=== PATIENT | female | born 1965 | race Caucasian/White ===

== ENCOUNTER → 2016-11-16 | Outpatient (CLI) | payer BC ==
[~2016-11-16] MED LIST: ALBU0.08 INH; ALBUAER2 INH; ATOR10TA88 PO; BUDE0.5S NEB; CETI10TA84 PO; ESCI1TAB10 PO; FERR325T51 PO; FEXO5TAB2 PO; LOSA100T26 PO; METO25TA3 PO; MTR600X PO; MULT-506 PO; OMEG10007 PO; OMEP40CA PO; PLMIN90 INH; SNG10 PO
--- NOTE | 2016-11-16 15:21 | DIAGNOSTIC IMAGING REPORT ---
FUSION CT SINUSES W/O CLINICAL HISTORY: Acute sinusitis, allergic rhinitis. COMPARISON STUDY: No previous studies for comparison. FINDINGS: The mastoid air cells appear symmetrically aerated. The middle ear cavities appear symmetrically aerated. There is fluid within the sphenoid sinus and right maxillary sinus. The ethmoid air cells are clear. There is minor right maxillary sinus mucosal thickening. No orbital masses are visualized. There is no hydrocephalus. There is pneumatization of both middle turbinates. There is minor ostial narrowing of the right ostiomeatal unit. The frontoethmoidal recesses appear patent IMPRESSION: 1. Minor narrowing of the ostial portion of the right ostiomeatal unit 2. Partial pneumatization of both middle turbinates 3. Right maxillary sinus and sphenoid sinus air-fluid levels. Electronically signed by: Vadim Lutz M.D. 11/16/2016 3:19 PM Dictated Date/Time: 11/16/2016 3:16 PM
== END | disposition home or self-care (01) ==
LOC: C.CTS 14:53
PROVIDERS: ATTEND Internal Medicine Geriatric Medicine
DX: J01.90 Acute sinusitis, unspecified (principal); J30.9 Allergic rhinitis, unspecified

== ENCOUNTER → 2016-12-22 | Outpatient (CLI) | payer BC ==
[~2016-12-22] MED LIST changes: +ATOR10TA82 PO; -ATOR10TA88 PO; -LOSA100T26 PO; +LOSA100T33 PO
== END | disposition home or self-care (01) ==
LOC: C.CPL 16:20
DX: Z01.818 Encounter for other preprocedural examination (principal)

== ENCOUNTER → 2017-01-08 | Day surgery (SDC) | payer BC ==
[2016-12-25 08:43] VITALS: Ht 165.1 cm; Wt 77.3 kg
[~2017-01-08] VITALS: Ht 165.1 cm; Wt 77.3 kg
[~2017-01-08] MED LIST changes: -ATOR10TA82 PO; +ATROPINE SULFATE 0.1 MG/ML 5ML SYR IV PRN; -BUDE0.5S NEB; +CLINDAMYCIN PHOS 150 MG/ML 2 ML VIAL IV SCH; +DEXAMETHASONE SOD INJ 4 MG/ML VIAL ONE; +EpHEDrine SULFATE 50MG/5ML SYR ONE; +EpHEDrine SULFATE INJ 50 MG/ML AMP IV PRN; +EpINEphrine INJ 1MG/ML AMP 1 MG/ML AMP ONE; +FENTANYL CITRATE INJ 50 MCG/1 ML 2 ML VIAL IV PRN; +FENTANYL CITRATE INJ 50 MCG/1 ML 2 ML VIAL ONE; -FERR325T51 PO; -FEXO5TAB2 PO; +GLYCOPYRROLATE INJ 0.2 MG/ML VIAL ONE; +HYDROCODONE/ACETAMOPHEN 5/325MG TAB ONE; +HYDROCODONE/ACETAMOPHEN 5/325MG TAB PO PRN; +LACTATED RINGER'S 1000ML 1,000 ML IV SCH; +LIDOCAINE 4% MPF SOAK 5 ML = 1 DOSE TOP ONE; +LIDOCAINE HCL 2% 2 ML VIAL (20MG/ML) ONE; +LIDOCAINE/EPINEPHRINE 1% INJ 50 ML VIAL ONE; +MIDAZOLAM HCL 1 MG/ML 2ML VIAL ONE; -MTR600X PO; +NEOSTIGMINE METHYLSULFATE 5 MG/5 ML SYR ONE; +ONDANSETRON INJ 2 MG/ML 2 ML VIAL IV PRN; +ONDANSETRON INJ 2 MG/ML 2 ML VIAL ONE; +OXYMETAZOLINE HCL 0.05% NA SPR 15 ML BTL PRN; +OXYMETAZOLINE HCL 0.05% NA SPR 15 ML BTL SCH; +PROPOFOL IV EMULSION 10 MG/ML 20 ML VIAL IV ONE; +SCOPOLAMINE 1.5 MG TDSY TD ONE
--- NOTE | 2017-01-08 08:50 | History & Physical Bridge - [place] ---
H&P Re-Evaluation Bridge Note: I have examined the patient, reviewed the History & Physical and in the interval since the performance of the History & Physical I have noted the following changes of clinical significance: No changes noted
--- NOTE | 2017-01-08 10:14 | [facility] Operative Report ---
Operative Report Operative Date Jan 08, 2017. Pre-Operative Diagnosis Chronic Sinusitis, Nasal Septal Deviation, Hypertrophy of Both Inferior Nasal Turbinates Post-Operative Diagnosis Same Procedure(s) Performed Image Guided Right Maxillary Antrostomy, Right Anterior Ethmoidectomy, Right Sphenoidectomy, Bilateral Candi Bullosa Resection, Bilateral Inferior Turbinate Reduction Surgeon Dr. López Clinical Instructor Surgeon(s) None Estimated Blood Loss 10 ml Findings 1. BILATERAL CANDI BULLOSA 2. SEVERE BILATERAL INFERIOR TURBINATE HYPERTROPHY 3. THICK MUCUS IN RIGHT MAXILLARY AND SPHENOID SINUSES Specimens None I attest to the content of the Intraoperative Record and any orders documented therein. Any exceptions are noted below.
--- NOTE | 2017-01-08 10:16 | Discharge Instructions ---
Discharge Instructions Date of Service Jan 08, 2017. Admission Reason for Admission: Chronic Sinusitis, Nasal Septal Deviation, Hypertr Discharge Discharge Diagnosis / Problem: SAME Discharge Goals Goal(s): Therapeutic intervention Activity Recommendations Activity Limitations: as noted below 1. NO DRIVING WHILE ON [place] 2. NO NOSE BLOWING FOR 2WEEKS 3. LIGHT ACTIVITY FOR 2 WEEKS . Current Hospital Diet Patient's current hospital diet: Discharge Diet Recommended Diet: Regular Diet Procedures Procedures Performed: Image Guided Right Maxillary Antrostomy, Right Anterior Ethmoidectomy, Right Sphenoidectomy, Bilateral Adriana Bullosa Resection, Bilateral Inferior Turbinate Reduction Pending Studies Studies pending at discharge: no Medical Emergencies . Who to Call and When: Medical Emergencies: If at any time you feel your situation is an emergency, please call 911 immediately. . Non-Emergent Contact Non-Emergency issues call your: Surgeon . . "Provider Documentation" section prepared by Alonso López. . VTE Core Measure Inpt VTE Proph given/why not?: SCD's
--- NOTE | 2017-01-08 11:05 | OPERATIVE REPORT ---
DATE OF OPERATION: 01/08/2017 PREOPERATIVE DIAGNOSES: 1. Chronic sinusitis. 2. Bilateral inferior turbinate hypertrophy. POSTOPERATIVE DIAGNOSES: 1. Chronic sinusitis. 2. Bilateral inferior turbinate hypertrophy. PROCEDURES: Facebook fusion image-guided bilateral endoscopic sinus surgery consisting of: 1. Bilateral endoscopic babar bullosa resection. 2. Right maxillary antrostomy. 3. Right anterior ethmoidectomy. 4. Right sphenoidotomy. 5. Bilateral inferior turbinate outfracture and turbinoplasty. SURGEON: Dr. López. ANESTHESIA: General endotracheal. ESTIMATED BLOOD LOSS: 10 mL FINDINGS: 1. Bilateral babar bullosa. 2. Thick mucus within the right maxillary and right sphenoid sinuses. 3. Severe bilateral inferior turbinate hypertrophy. SPECIMENS: None. COMPLICATIONS: None. INDICATIONS FOR THE PROCEDURE: The patient is a 51-year-old female with the above-mentioned history which has been unresponsive to maximum medical therapy. She presents for the above-mentioned procedure on an outpatient elective basis. DETAILS OF PROCEDURE: After informed consent had been obtained from the patient, the patient was wheeled to the operating room and placed on the operating table in the supine position. Monitors were placed. After induction of general endotracheal anesthesia, the patient was prepped in the usual fashion for image-guided bilateral endoscopic sinus surgery. The [employer] navigation headset was placed over the forehead and was verified, calibrated, and used for the sphenoid sinus portion of the procedure. Lidocaine and epinephrine pledgets were placed in bilateral nasal cavities and pressure applied. Left-sided pledgets were removed and the left middle turbinate was injected with 1% lidocaine with 1:100,000 epinephrine. Lidocaine and epinephrine pledget was then placed in the left middle meatus. The right side was then addressed in a similar fashion; however, on this side, the lateral nasal wall and uncinate process were also injected. The left-sided pledget was removed. A sickle knife was used to incise the middle turbinate longitudinally and the lateral half of the middle turbinate was removed using straight Marquez-Cut forceps and powered instrumentation to perform an endoscopic babar bullosa resection. A lidocaine-epinephrine pledget was then placed into the left middle meatus. The right side was then addressed in a similar fashion. After the babar bullosa resection, the uncinate process was removed using a freer elevator, straight Marquez-Cut forceps, and powered instrumentation. The natural ostia of the right maxillary sinus was enlarged anteriorly, inferiorly, and posteriorly using backbiting forceps, straight Marquez-Cut forceps, and powered instrumentation. There was thick mucus within the posterior aspect of the right maxillary sinus, which was suctioned. An anterior ethmoidectomy was then performed using powered instrumentation. A transnasal approach to the sphenoid sinus was undertaken and the sphenoid sinus was entered through the natural ostia and this was enlarged medially and inferiorly using powered instrumentation. There was thick mucus within the posterior aspect of the right sphenoid sinus as well. Recinos elevator was then used to infracture and subsequently outfracture the inferior turbinates bilaterally. The inferior turbinates were injected with 1% lidocaine with 1:100,000 epinephrine. A 2.0 mm turbinate blade using powered instrumentation was then used to perform bilateral inferior turbinoplasties in a submucosal fashion. The sinonasal cavities were then suctioned. MeroGel nasal dressing was then placed in bilateral middle meatus as well as the right ethmoid cavity. The nasal cavity, nasopharynx, oral cavity and oropharynx were then suctioned. An orogastric tube was placed and stomach was suctioned free of air and stomach contents. This marked the end of the case. The patient tolerated the procedure well. There were no apparent complications. The patient was extubated and transferred to recovery room in stable condition. I attest to the content of the Intraoperative Record and any orders documented therein. Any exceptio ns are noted below.
[2017-01-08 11:46] VITALS: BP 132/77; PULSE 71; O2SAT 99
--- NOTE | 2017-01-08 12:16 | Anesthesia Progress Nt - [facility] ---
Anesthesia Post Op Note Date & Time Jan 08, 2017 at 12:16 Vital Signs Pain Intensity: 4 Vital Signs Past 12 Hours Date Time Temp Pulse Resp B/P Pulse Ox O2 Delivery O2 Flow Rate FiO2 01/08/17 11:46 71 16 132/77 99 Room Air 01/08/17 11:02 36.5 74 16 130/79 99 Room Air 01/08/17 10:54 142/80 01/08/17 10:54 36.7 99 Room Air 01/08/17 10:53 74 13 01/08/17 10:53 75 13 100 01/08/17 10:50 142/80 01/08/17 10:48 76 12 100 01/08/17 10:48 75 12 01/08/17 10:44 146/84 01/08/17 10:43 78 10 01/08/17 10:43 78 10 100 01/08/17 10:39 149/76 01/08/17 10:38 72 13 01/08/17 10:38 72 13 100 01/08/17 10:37 82 16 01/08/17 10:37 81 16 100 01/08/17 10:34 147/71 01/08/17 10:32 73 7 100 01/08/17 10:32 75 7 01/08/17 10:29 147/79 01/08/17 10:27 87 13 100 01/08/17 10:27 87 13 01/08/17 10:24 149/77 01/08/17 10:22 96 01/08/17 10:22 36.6 91 16 167/80 100 Humidified Oxygen 6 Mask 01/08/17 10:22 96 167/80 100 01/08/17 07:54 36.7 67 16 128/67 98 Room Air Notes Mental Status: alert / awake / arousable, participated in evaluation Pt Amnestic to Procedure: Yes Nausea / Vomiting: adequately controlled Pain: adequately controlled Airway Patency, RR, SpO2: stable & adequate BP & HR: stable & adequate Hydration State: stable & adequate Anesthetic Complications: no major complications apparent
== END | disposition home or self-care (01) ==
LOC: X.SURG 07:28
DX: J32.9 Chronic sinusitis, unspecified (principal); J34.3 Hypertrophy of nasal turbinates; J34.2 Deviated nasal septum; J45.909 Unspecified asthma, uncomplicated; Z98.890 Other specified postprocedural states; Z88.5 Allergy status to narcotic agent; Z91.040 Latex allergy status; Z68.28 Body mass index [BMI] 28.0-28.9, adult; Z88.1 Allergy status to other antibiotic agents; Z88.0 Allergy status to penicillin; Z80.3 Family history of malignant neoplasm of breast; Z82.49 Family history of ischemic heart disease and other diseases of the circulatory system

== ENCOUNTER → 2017-04-28 | Outpatient (CLI) | payer BC ==
[~2017-04-28] MED LIST changes: -ATROPINE SULFATE 0.1 MG/ML 5ML SYR IV PRN; -CLINDAMYCIN PHOS 150 MG/ML 2 ML VIAL IV SCH; -DEXAMETHASONE SOD INJ 4 MG/ML VIAL ONE; -EpHEDrine SULFATE 50MG/5ML SYR ONE; -EpHEDrine SULFATE INJ 50 MG/ML AMP IV PRN; -EpINEphrine INJ 1MG/ML AMP 1 MG/ML AMP ONE; -FENTANYL CITRATE INJ 50 MCG/1 ML 2 ML VIAL IV PRN; -FENTANYL CITRATE INJ 50 MCG/1 ML 2 ML VIAL ONE; -GLYCOPYRROLATE INJ 0.2 MG/ML VIAL ONE; -HYDROCODONE/ACETAMOPHEN 5/325MG TAB ONE; -HYDROCODONE/ACETAMOPHEN 5/325MG TAB PO PRN; -LACTATED RINGER'S 1000ML 1,000 ML IV SCH; -LIDOCAINE 4% MPF SOAK 5 ML = 1 DOSE TOP ONE; -LIDOCAINE HCL 2% 2 ML VIAL (20MG/ML) ONE; -LIDOCAINE/EPINEPHRINE 1% INJ 50 ML VIAL ONE; +LOSA100T26 PO; -LOSA100T33 PO; -MIDAZOLAM HCL 1 MG/ML 2ML VIAL ONE; -NEOSTIGMINE METHYLSULFATE 5 MG/5 ML SYR ONE; -ONDANSETRON INJ 2 MG/ML 2 ML VIAL IV PRN; -ONDANSETRON INJ 2 MG/ML 2 ML VIAL ONE; -OXYMETAZOLINE HCL 0.05% NA SPR 15 ML BTL PRN; -OXYMETAZOLINE HCL 0.05% NA SPR 15 ML BTL SCH; -PROPOFOL IV EMULSION 10 MG/ML 20 ML VIAL IV ONE; -SCOPOLAMINE 1.5 MG TDSY TD ONE
--- NOTE | 2017-04-29 14:05 | MAMMOGRAPHY REPORT ---
BILATERAL DIGITAL SCREENING MAMMOGRAM TOMOSYNTHESIS WITH CAD: 04/28/2017 TECHNIQUE: Breast tomosynthesis in addition to standard 2D mammography was performed. Current study was also evaluated with a Computer Aided Detection (CAD) system. COMPARISON: Comparison is made to exams dated: 04/27/2016 mammogram, 04/24/2015 mammogram, 04/23/2014 m ammogram, 04/20/2013 mammogram, 04/18/2012 mammogram, and 04/17/2011 mammogram - [facility] er. BREAST COMPOSITION: There are scattered areas of fibroglandular density in both breasts. FINDINGS: No suspicious masses, calcifications, or areas of architectural distortion are noted in ei ther breast. There has been no significant interval change compared to prior exams. IMPRESSION: ACR BI-RADS CATEGORY 1: NEGATIVE There is no mammographic evidence of malignancy. A 1 year screening mammogram is recommended. The pa tient will receive written notification of the results. Approximately 10% of breast cancers are not detected with mammography. A negative mammographic report should not delay biopsy if a clinically suggestive mass is present. Bhumika Roa M.D. /:04/28/2017 15:21:15 Cold Type Composing Machine Operator: Carol BABIN(Romelia)(M), [facility] letter sent: Normal 1/2 BI-RADS Code: ACR BI-RADS Category 1: Negative
== END | disposition home or self-care (01) ==
LOC: C.MAMM 12:06
PROVIDERS: ATTEND Obstetrics & Gynecology
DX: Z12.31 Encounter for screening mammogram for malignant neoplasm of breast (principal)

== ENCOUNTER → 2017-05-07 | Outpatient (CLI) | payer BC ==
--- NOTE | 2017-05-07 11:44 | DIAGNOSTIC IMAGING REPORT ---
ABDOMINAL ULTRASOUND, RIGHT UPPER QUADRANT HISTORY: Elevated alkaline phosphatase level. COMPARISON: None. FINDINGS: Hepatic echogenicity is increased consistent with fatty infiltration. Note is made of an 8 mm left hepatic lobe cyst. There is no biliary ductal dilatation. The common bile duct measures 4 mm in caliber. The pancreatic body is normal while the head and tail are partially obscured by overlying bowel gas. The gallbladder is normal. There are no gallstones. There is no right hydronephrosis. IMPRESSION: 1. No gallstones or biliary ductal dilatation. 2. Fatty liver. Electronically signed by: William Serna M.D. 05/07/2017 11:42 AM Dictated Date/Time: 05/07/2017 11:42 AM
== END | disposition home or self-care (01) ==
LOC: C.ULTRBC 10:48
PROVIDERS: ATTEND Internal Medicine Geriatric Medicine
DX: R74.8 Abnormal levels of other serum enzymes (principal); K76.0 Fatty (change of) liver, not elsewhere classified

== ENCOUNTER 2017-08-29 11:39 | Emergency (ER) | payer BC ==
[~2017-08-29] VITALS: Ht 165.1 cm; Wt 81.0 kg
[~2017-08-29 11:39] MED LIST changes: -LOSA100T26 PO; +LOSA100T33 PO
[2017-08-29 11:41] VITALS: Ht 165.1 cm; Wt 81.0 kg
[2017-08-29 12:13] VITALS: O2SAT 98
[2017-08-29 12:14] VITALS: TEMP 37.4
[2017-08-29] MEDS ORDERED: MoRPHine SULFATE 4 MG/ML 1 ML CARP\\VIAL IV STA (12:14)
[2017-08-29] MEDS ORDERED: ONDANSETRON INJ 2 MG/ML 2 ML VIAL IV STA (12:14)
[2017-08-29] MEDS ORDERED: SODIUM CHLORIDE 0.9% 500ML 500 ML IV STA (12:14)
[2017-08-29 12:32] LABS: BASO % 0.6 %; BASO ABS # 0.04 K/uL (0-0.2); COMPLETE YES; EOS % 3.4 %; HEMATOCRIT 44.2 % (37-47); IG% 1.7 %; LYMPH % 28.1 %; LYMPH ABS # 1.84 K/uL (1.2-3.4); MEAN CELL VOLUME 94.6 fL (80-100); MEAN CORPUSCULAR HEMOGLOBIN 31.9 pg (25-34); MEAN CORPUSCULAR HGB CONC 33.7 g/dl (32-36); MEAN PLATELET VOLUME 9.9 fL (7.4-10.4); MONO % 9.3 %; NEUT % 56.9 %; PLATELET COUNT 281 K/uL (130-400); RED BLOOD COUNT 4.67 M/uL (4.2-5.4); WHITE BLOOD COUNT 6.54 K/uL (4.8-10.8)
--- NOTE | 2017-08-29 12:37 | DIAGNOSTIC IMAGING REPORT ---
HEAD WITHOUT CONTRAST (CT) CLINICAL HISTORY: 51 years-old Female presenting with Stroke. TECHNIQUE: Multidetector CT imaging of the head was performed without the use of intravenous contrast. IV contrast: None. A dose lowering technique was used consistent with the principles of ALARA (as low as reasonably achievable). COMPARISON: None. CT DOSE (mGy.cm): The estimated cumulative dose is 537.48 mGy.cm. FINDINGS: Elderly Caregiver topogram: Unremarkable. Ventricles and sulci normal in size. Brain parenchyma normal in appearance with preserved flores-white differentiation. No mass effect or midline shift. No hemorrhage or acute territorial infarct. No extra-axial fluid collection. Paranasal sinuses and mastoid air cells clear. Calvarium intact. [place] right lens is absent. IMPRESSION: 1. No acute intracranial abnormality. Electronically signed by: Kojo Mortensen M.D. 08/29/2017 12:36 PM Dictated Date/Time: 08/29/2017 12:34 PM
[2017-08-29] MEDS ORDERED: OMEP40CA41 PO (12:39)
[2017-08-29] MEDS ORDERED: SNG10 PO (12:39)
[2017-08-29] MEDS ORDERED: HYZ/10015 PO (12:39)
[2017-08-29 12:40] LABS: INR 0.9 (0.9-1.1); PROTHROMBIN TIME (PATIENT) 9.7 SECONDS (9.0-12.0)
--- NOTE | 2017-08-29 12:42 | EMERGENCY ROOM VISIT NOTE ---
History Report prepared by Talisha: Anika Cuenca Under the Supervision of: Dr. Manish Rivera M.D. First contact with patient: 12:05 Chief Complaint: NEURO SYMPTOMS Stated Complaint: LOSS OF VISION IN RT EYE,FACIAL NUMBNESS Nursing Triage Summary: pt reports history of lens implant in right eye. pt reports she cannot see out of that eye "it is a like a big black cloud over it." pt also reports headache on right side of head. pt also reports right sided facial numbness. pt tearful and reporting she is scared. History of Present Illness The patient is a 51 year old female who presents to the Emergency Room with complaints of persistent right eye vision changes for 14 hours [employer]. She reports that her eye began to feel weird while she was driving yesterday. She used artificial tears before bed, though there were no changes in the discomfort. She reports waking up and her right eye vision has worsened. She describes seeing "squiggles and blackness, and the longer I keep my eye open, the worse it becomes." She notes the right side of her face became become numb 2.5 hours [employer]. She states that each time she bends over; see could feel throbbing in her right eye. She currently rates her pain a 2/10 in severity. She has never experienced these symptoms before. She also notes headache and her right arm feels numb. She has increased hot flashes. She has a history of a lens implant in her right eye due to cataracts. She denies any speech changes, trauma, or falls. She has a history of migraines and a hysterectomy in 2016. She notes a family history of HTN and brain aneurysm. 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 She notes throbbing pain in right eye. She notes increased hot flashes. She denies any speech changes, trauma, or falls. Review of Systems See HPI for pertinent positives & negatives. A total of 10 systems reviewed and were otherwise negative. Past Medical & Surgical Medical Problems: (1) Cataract, right eye (2) lens implant in right eye (3) Menorrhagia, Endometriosis Surgical Problems: (1) H/O: hysterectomy Family History FH: HTN (hypertension) FH: brain aneurysm FH: myocardial infarction Social History Smoking Status: Never Smoker Alcohol Use: occasionally Drug Use: none Marital Status: Housing Status: lives with significant other Occupation Status: employed Current/Historical Medications Scheduled Budesonide (Pulmicort Flexhaler), 2 PUFF INH QAM Escitalopram Oxalate (Lexapro), 20 MG PO QAM Hctz/Losartan (Hyzaar 25MG/100MG), 0.5 TAB PO DAILY Metoprolol Succ (Toprol Xl) (Toprol-Xl), 25 MG PO QAM Montelukast Sod (Montelukast Sodium), 10 MG PO DAILY Omeprazole (Prilosec), 40 MG PO BID Scheduled PRN Cetirizine (Zyrtec), 10 MG PO DAILY PRN for PRN Allergies Coded Allergies: Cephalosporins (Unverified Allergy, Unknown, RASH, 08/29/17) Codeine (Verified Adverse Reaction, Unknown, SEVERE NAUSEA AND VOMITING, 08/29/17) Erythromycin (Verified Adverse Reaction, Unknown, GI upset , 08/29/17) Lisinopril (Verified Adverse Reaction, Unknown, cough, 08/29/17) Morphine (Verified Adverse Reaction, Unknown, SEVERE NAUSEA AND VOMITING, 08/29/17) Physical Exam Vital Signs Date Time Temp Pulse Resp B/P (MAP) Pulse Ox O2 Delivery O2 Flow Rate FiO2 08/29/17 13:28 66 18 139/79 94 Room Air 08/29/17 12:14 37.4 72 18 149/87 98 Room Air 08/29/17 12:13 98 Room Air 08/29/17 12:06 63 08/29/17 11:41 37.4 81 18 161/84 96 Room Air Physical Exam GENERAL: Patient is in no acute distress. HEENT: No acute trauma, normocephalic atraumatic, mucous membranes moist, no nasal congestion, no scleral icterus. PERRL. Intraocular pressure testing in the left is 19 and in the right is 17. Visual acuity Right 20/200 and left is 20 /20. NECK: No stridor, no adenopathy, no meningismus, trachea is midline. LUNGS: Clear to auscultation bilaterally, no wheeze, no rhonchi, breath sounds equal. HEART: Without murmurs gallops or rubs, regular rate and rhythm. ABDOMEN: Soft, nontender, bowel sounds positive, no hernias, no peritonitis. EXTREMITIES: No cyanosis or edema, full range of motion of all the joints without pain or difficulty, no signs for acute trauma. NEUROLOGIC: Awake, alert and oriented x3. Little to no vision when testing the right eye. Left eye visual field testing is intact. No facial droop. No speech slur. Slight tremor in RUE with drift testing. Cerebellar function intact bilaterally. Skin: No rash or jaundice. Medical Decision & Procedures ER Provider Diagnostic Interpretation: Radiology results as stated below per my review and radiologist interpretation: HEAD WITHOUT CONTRAST (CT) CLINICAL HISTORY: 51 years-old Female presenting with Stroke. TECHNIQUE: Multidetector CT imaging of the head was performed without the use of intravenous contrast. IV contrast: None. A dose lowering technique was used consistent with the principles of ALARA (as low as reasonably achievable). COMPARISON: None. CT DOSE (mGy.cm): The estimated cumulative dose is 537.48 mGy.cm. FINDINGS: Supervisor Pre Wave topogram: Unremarkable. Ventricles and sulci normal in size. Brain parenchyma normal in appearance with preserved flores-white differentiation. No mass effect or midline shift. No hemorrhage or acute territorial infarct. No extra-axial fluid collection. Paranasal sinuses and mastoid air cells clear. Calvarium intact. [place] right lens is absent. IMPRESSION: 1. No acute intracranial abnormality. Electronically signed by: Kojo Mortensen M.D. 08/29/2017 12:36 PM Dictated Date/Time: 08/29/2017 12:34 PM Laboratory Results 08/29/17 12:09 Red Blood Count 4.67, Mean Corpuscular Volume 94.6, Mean Corpuscular Hemoglobin 31.9, Mean Corpuscular Hemoglobin Concent 33.7, Mean Platelet Volume 9.9, Neutrophils (%) (Auto) 56.9, Lymphocytes (%) (Auto) 28.1, Monocytes (%) (Auto) 9.3, Eosinophils (%) (Auto) 3.4, Basophils (%) (Auto) 0.6, Neutrophils # (Auto) 3.72, Lymphocytes # (Auto) 1.84, Monocytes # (Auto) 0.61, Eosinophils # (Auto) 0.22, Basophils # (Auto) 0.04 08/29/17 12:09 Test 08/29/17 12:09 White Blood Count 6.54 K/uL (4.8-10.8) Red Blood Count 4.67 M/uL (4.2-5.4) Hemoglobin 14.9 g/dL (12.0-16.0) Hematocrit 44.2 % (37-47) Mean Corpuscular Volume 94.6 fL (80-100) Mean Corpuscular Hemoglobin 31.9 pg (25-34) Mean Corpuscular Hemoglobin Concent 33.7 g/dl (32-36) Platelet Count 281 K/uL (130-400) Mean Platelet Volume 9.9 fL (7.4-10.4) Neutrophils (%) (Auto) 56.9 % Lymphocytes (%) (Auto) 28.1 % Monocytes (%) (Auto) 9.3 % Eosinophils (%) (Auto) 3.4 % Basophils (%) (Auto) 0.6 % Neutrophils # (Auto) 3.72 K/uL (1.4-6.5) Lymphocytes # (Auto) 1.84 K/uL (1.2-3.4) Monocytes # (Auto) 0.61 K/uL (0.11-0.59) Eosinophils # (Auto) 0.22 K/uL (0-0.5) Basophils # (Auto) 0.04 K/uL (0-0.2) RDW Standard Deviation 48.0 fL (36.4-46.3) RDW Coefficient of Variation 13.9 % (11.5-14.5) Immature Granulocyte % (Auto) 1.7 % Immature Granulocyte # (Auto) 0.11 K/uL (0.00-0.02) Erythrocyte Sedimentation Rate 9 mm/hr (0-21) Prothrombin Time 9.7 SECONDS (9.0-12.0) Prothromb Time International Ratio 0.9 (0.9-1.1) Activated Partial Thromboplast Time 26.8 SECONDS (21.0-31.0) Partial Thromboplastin Ratio 1.0 Anion Gap 5.0 mmol/L (3-11) Est Creatinine Clear Calc Drug Dose 94.4 ml/min Estimated GFR () 107.7 Estimated GFR (Non- 92.9 BUN/Creatinine Ratio 12.0 (10-20) Calcium Level 9.5 mg/dl (8.5-10.1) Magnesium Level 2.2 mg/dl (1.8-2.4) Total Creatine Kinase 54 U/L (26-192) Creatine Kinase MB 0.6 ng/ml (0.5-3.6) Creatine Kinase MB Ratio 1.1 (0-3.0) Troponin I < 0.015 ng/ml (0-0.045) C-Reactive Protein 0.63 mg/dl (0-0.29) Laboratory results reviewed by me. Medications Administered Medications (Trade) Dose Ordered Sig/Apryl Route Start Time Stop Time Status Last Admin Dose Admin Sodium Chloride 500 ml @ 999 mls/hr Q31M STAT IV 08/29/17 12:14 08/29/17 12:44 DC 08/29/17 12:40 999 MLS/HR Morphine Sulfate (MoRPHine SULFATE INJ) 4 mg NOW STAT IV 08/29/17 12:14 08/29/17 12:19 DC 08/29/17 12:41 4 MG Ondansetron HCl (Zofran Inj) 4 mg NOW STAT IV 08/29/17 12:14 08/29/17 12:19 DC 08/29/17 12:40 4 MG ECG Indication: other (right eye vision changes) Rate (beats per minute): 66 Rhythm: normal sinus Findings: no acute ischemic change, no ectopy ED Course 1205: The patient was evaluated in room B3B. A complete history and physical exam was performed. 1214: Ordered Zofran 4 mg IV, Morphine Sulfate 4 mg IV, and NSS 500 ml @ 999 mls /hr IV 1222: I reassessed the paitent at this time. Her intraocular pressure testing in the left is 19 and in the right is 17. Visual acuity Right 20/200 and left is 20/20. 1231: I spoke with Dr. Conde, ophthalmology. We discussed the patients case. The patient will be further evaluated. 1242: I reassessed the patient at this time. She is feeling better and resting comfortably. 1341: I spoke with Dr. Conde, ophthalmology. We discussed the patients case. He notes the patient has retinal tears and recommends the patient follow up with him tomorrow as an outpatient. 1345: I reassessed the patient at this time. She is feeling better and resting comfortably. I discussed the results and treatment plan with the patient. I answered all pertaining questions that she had. She expressed understanding and verbalized agreement. The patient will be discharged home. Medical Decision The patient is a 51 year old female who presents to the ED with complaints of right eye vision changes. Differential diagnoses considered include stroke, complex migraine, retinal detachment, glaucoma, vitreous bleeding, aneurysm, electrolyte imbalance, infection, and lens dislocation. There is no leukocytosis or concerning anemia. No significant electrolyte abnormality, kidney failure. There is no coagulopathy. EKG shows a normal sinus rhythm, no ischemia or ectopy. Brain CT shows no acute bleed or mass effect. Pressure in the right eye was 17, left eye pressure was 19. Visual acuity in the right eye was poor at 20/200, left eye visual acuity was 20/20. On my exam, there were no true focal motor deficits noted. No facial droop or speech slur. The patient received IV saline, IV Zofran and IV morphine. The morphine was given for her headache. I spoke with the associate director qa on-call. The associate director qa did an evaluation at bedside and believes the patient has multiple right sided retinal tears with vitreous bleeding. The vitreous bleeding and the tearing of the retina is why her vision is so poor out of that right eye. The patient is being discharged. She is reporting to the surgical center tomorrow for the retinal tears. The patient is being discharged with an oxycodone home pack for pain. She was reassured by her testing, she can return if worsening. Medication Reconcilliation Current Medication List: was personally reviewed by me Blood Pressure Screening Patient's blood pressure: Elevated blood pressure Blood pressure disposition: Elevated BP felt to be situational Consults Time Called: 1225 Consulting Physician: Dr. Conde, ophthalmology Returned Call: [address] Conde, ophthalmology. We discussed the patients case. The patient will be further evaluated. 1341: I spoke with Dr. Conde, ophthalmology. We discussed the patients case. He notes the patient has retinal tears and recommends the patient follow up with him tomorrow as an outpatient. Impression Primary Impression: Vitreous hemorrhage, right eye Additional Impression: Retinal tear of right eye Scribe Attestation The scribe's documentation has been prepared under my direction and personally reviewed by me in its entirety. I confirm that the note above accurately reflects all work, treatment, procedures, and medical decision making performed by me. Departure Information Dispostion Home / Self-Care Referrals Joaquin Morales M.D. (PCP) Forms HOME CARE DOCUMENTATION FORM, IMPORTANT VISIT INFORMATION, WORK / SCHOOL INSTRUCTIONS Patient Instructions My [facility] Additional Instructions report to surgical center tomorrow as Dr. Conde suggested oxy ir 1-2 tab every 4 hours for severe pain return if worsening lab testing, ECG and brain CT scan today were all ok Problem Qualifiers
[2017-08-29 12:55] LABS: BLOOD UREA NITROGEN 9 mg/dl (7-18); CALCIUM 9.5 mg/dl (8.5-10.1); CARBON DIOXIDE 29 mmol/L (21-32); CHLORIDE 104 mmol/L (98-107); CREATININE 0.75 mg/dl (0.60-1.20); GLUCOSE 87 mg/dl (70-99); MAGNESIUM 2.2 mg/dl (1.8-2.4); POTASSIUM 3.6 mmol/L (3.5-5.1); SODIUM 138 mmol/L (136-145)
[2017-08-29 12:59] LABS: CKMB/CK RATIO 1.1 (0-3.0)
[2017-08-29 13:31] LABS: C-REACTIVE PROTEIN 0.63 mg/dl (0-0.29)
--- NOTE | 2017-08-29 13:35 | Ophthalmology Consultation ---
Ophthalmology Consultation Date of Service: Aug 29, 2017. Requested By: [facility] History of Present Illness: 51 y/o female w/ loss of vision OD started yesterday and worse upon awakening today. +SUN and ?right arm and face tightness noticed on testing here at ED CC: loss of vision Vision: decreased Location (of CC): OD Quality/Severity: moderate Duration: 2 days Timing: gradual Context: was driving home when noticed symptoms Associated Signs/Symptoms: +SUN and ?right arm and face tightness noticed on testing here at ED Modifying Factors: none No other eye complaints. Mood and Affect: normal Past Ocular History: Right Eye: 1. PCIOL by Dr. Zapien 2013, yag cap also Left Eye: 1. none Medications: see EMR Relevant Past Medical History: HTN asthma anxiety VA cc OD: 20/200 OS: 20/20 IOP: 18/17 VF: full to count fingers OU Motility: full OU no RAPD OU External: The ocular adnexae are unremarkable. SLE: Lids/Lashes: wnl OU Conjunctiva/Sclera: quiet OU Cornea: clear OU Anterior Chamber: deep and quiet OU Iris: normal OU; no NVI OU Lens: PCIOL OD; trace NSC OS Dilated fundus exam OD: vitreous: +VH/pvd optic nerve: 0.1, no edema/pallor/NVD macula: wnl vessels: wnl midperiphery: wnl periphery: +RTs 6, 9 and 12 o'clock Dilated fundus exam OS: vitreous: clear optic nerve: 0.1, no edema/pallor/NVD macula: wnl vessels: wnl Midperiphery: wnl periphery: no RT/RD, +lattice degeneration superiorly Assessment and Plan: 1. 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
[2017-08-29] MEDS ORDERED: OXYCODONE IR HOME PACK PO ONE (14:00)
[2017-08-29 14:05] VITALS: BP 143/79; PULSE 63; O2SAT 97
== END 2017-08-29 14:08 | disposition home or self-care (01) ==
LOC: C.EDB 11:40
DX: H43.11 Vitreous hemorrhage, right eye (principal); H33.311 Horseshoe tear of retina without detachment, right eye; Z98.49 Cataract extraction status, unspecified eye; Z90.710 Acquired absence of both cervix and uterus; Z79.899 Other long term (current) drug therapy; Z88.5 Allergy status to narcotic agent; Z88.8 Allergy status to other drugs, medicaments and biological substances; Z82.49 Family history of ischemic heart disease and other diseases of the circulatory system

== ENCOUNTER → 2017-08-30 | Day surgery (SDC) | payer BC ==
[~2017-08-30] VITALS: Ht 165.1 cm; Wt 79.5 kg
[~2017-08-30] MED LIST changes: +ACETAMINOPHEN 325 MG TAB PO PRN; -ALBU0.08 INH; -ALBUAER2 INH; +ATROPINE SULFATE 0.1 MG/ML 5ML SYR IV PRN; +BUPIVACAINE HCL 0.75% 10 ML AMP/VIAL ONE; +CEFAZOLIN SOD 1 GM VIAL ONE; +DEXAMETHASONE SOD INJ 4 MG/ML VIAL ONE; +EpHEDrine SULFATE 50MG/5ML SYR ONE; +EpINEphrine INJ 1MG/ML AMP 1 MG/ML AMP ONE; +FENTANYL CITRATE INJ 50 MCG/1 ML 2 ML VIAL ONE; +HYALURONIDASE HUMAN 150 UNIT/ML INJ ONE; +HYZ/10015 PO; +INDOCYANINE GREEN 25 MG/10 ML ONE; +LACTATED RINGER'S 1000ML 500 ML IV SCH; +LIDOCAINE HCL 2% 2 ML VIAL (20MG/ML) ONE; -LOSA100T33 PO; +MIDAZOLAM HCL 1 MG/ML 2ML VIAL ONE; -MULT-506 PO; -OMEG10007 PO; -OMEP40CA PO; +OMEP40CA41 PO; +ONDANSETRON INJ 2 MG/ML 2 ML VIAL IV PRN; +ONDANSETRON INJ 2 MG/ML 2 ML VIAL ONE; +POVIDONE-IODINE OP SOLN (SURGERY CNTR CHARGING ONLY) ONE; +PROPARACAINE 0.5% OP SOLN PER DROP CHARGE OPR SCH; +PROPOFOL IV EMULSION 10 MG/ML 20 ML VIAL IV ONE; +TIMOLOL MALEATE 0.5% OP SOLN PER DROP CHARGE ONE; +TRIAMCINOLONE ACETONIDE OPHTH 40 MG/ML VIAL STERILE IO ONE
[2017-08-30 09:49] VITALS: Ht 165.1 cm; Wt 79.5 kg
[2017-08-30] MEDS: TROPICAMIDE 1% OP SOLN PER DROP CHARGE OPR SCH ×2 (11:25→11:30)
[2017-08-30] MEDS: PHENYLEPHRINE HCL 2.5% OP SOLN PER DROP CHARGE OPR SCH ×2 (11:26→11:31)
--- NOTE | 2017-08-30 12:43 | History and Physical: Surg Cnt ---
History & Physical Date Aug 30, 2017. History of Present Illness The patient is a 51 year old female with complaints of loss of vision right eye Past Medical/Surgical History Medical Problems: (1) Cataract, right eye (2) lens implant in right eye (3) Menorrhagia, Endometriosis Surgical Problems: (1) H/O: hysterectomy Additional History Hepatic Disease: No Endocrine Disorder: No Kidney Disease: No Hypertension: Yes Heart Disease: No Bleeding Tendencies: No Infectious Diseases: No Allergies Coded Allergies: Cephalosporins (Unverified Allergy, Unknown, RASH, 08/29/17) Codeine (Verified Adverse Reaction, Unknown, SEVERE NAUSEA AND VOMITING, 08/29/17) Erythromycin (Verified Adverse Reaction, Unknown, GI upset , 08/29/17) Lisinopril (Verified Adverse Reaction, Unknown, cough, 08/29/17) Morphine (Verified Adverse Reaction, Unknown, SEVERE NAUSEA AND VOMITING, 08/29/17) Home Medications Scheduled Budesonide (Pulmicort Flexhaler), 2 PUFF INH QAM Escitalopram Oxalate (Lexapro), 20 MG PO QAM Hctz/Losartan (Hyzaar 25MG/100MG), 0.5 TAB PO DAILY Metoprolol Succ (Toprol Xl) (Toprol-Xl), 25 MG PO QAM Montelukast Sod (Montelukast Sodium), 10 MG PO DAILY Omeprazole (Prilosec), 40 MG PO BID Scheduled PRN Cetirizine (Zyrtec), 10 MG PO DAILY PRN for PRN Physical Examination Skin: warm/dry Eyes: normal inspection Head: normocephalic Respiratory/Chest: lungs clear Cardiovascular: regular rate, rhythm Plan of Treatment Multiple retinal tears right eye -recommend laser under anesthesia today
[2017-08-30] MEDS: NEOMYCIN/POLYMYX/DEXAMETH OP OINT PER APP CHARGE ONE ×2 (13:01→13:03)
--- NOTE | 2017-08-30 13:48 | [facility] Operative Report ---
Operative Report Date of Service Aug 30, 2017. Operative Report PREOPERATIVE DIAGNOSIS: 1. Multiple retinal tears in the right eye POSTOPERATIVE DIAGNOSIS: same. PROCEDURE: 1. Laser of the right eye. CPT CODE: 90048 RT SURGEON: Isaiah Conde D.O. COMPLICATIONS: None. ESTIMATED BLOOD LOSS: None. SPECIMENS: None. ANESTHESIA: general. INDICATIONS FOR PROCEDURE: laser is indicated to decrease risk of vision loss. CONSENT: The risks, benefits and alternatives were discussed with the patient including but not limited to decreased visual acuity, failure to achieve desired results, loss of the eye, infection, pain, glaucoma, lens changes, retinal tears, retinal detachment, the need for more procedures, drooping of the eyelid, blindness, and double vision. The patient is aware of risks and consents to the surgery. Consent is signed and on the chart. OPERATION AND FINDINGS: The patient was brought to the operating room where the patient was identified by name, date, and medical record number. The surgical site was confirmed with the informed written consent. The patient was sedated by the anesthesiology team Attention was turned toward the right eye and prophylactic laser procedure was performed with a laser indirect ophthalmoscope to apply laser barrier around the numerous retinal tears and any areas of lattice degeneration and retinal defects in the right eye. There were multiple complex and large retinal tears inferiorly, temporally and superiorly and there was lattice degeneration nasally. There was noted a posterior vitreous detachment and vitreous hemorrhage. All areas were treated with 3 or more rows of confluent laser without difficulty. The wire lid speculum was removed. Maxitrol was applied to the surface of the eye and the patient left the Operating Room in stable condition having tolerated the procedure well. DISPOSITION: The patient has an appointment in 1 week in the Ophthalmology Clinic. The patient is to call immediately if there are any problems overnight. I attest to the content of the Intraoperative Record and any orders documented therein. Any exceptions are noted below.
--- NOTE | 2017-08-30 13:48 | Discharge Instructions-SurgCtr ---
Discharge Instructions Date of Service Aug 30, 2017. Visit Reason for Visit: Right Eye Retinal Tears Discharge Discharge Diagnosis / Problem: same Discharge Goals Goal(s): Improve function Activity Recommendations Activity Limitations: per Instructions/Follow-up section Anesthesia . Post Anesthesia Instructions: If you have had General Anesthesia or IV Sedation: * Do not drive today. * Resume driving when surgeon permits. * Do not make important decisions or sign legal documents today. * Call surgeon for: 1. Temperature elevations greater than 101 degrees F. 2. Uncontrollable pain. 3. Excessive bleeding. 4. Persistent nausea and vomiting. 5. Medication intolerance (nausea, vomiting or rash). * For nausea and vomiting use only clear liquids such as: tea, soda, bouillon until nausea subsides, then gradually increase diet as tolerated. * If you have any concerns or questions, call your surgeon's office. If physician is unavailable and it is an emergency, call 911 or go to the nearest emergency room. . Diet Recommendations Home Diet: resume previous diet Procedures Procedures Performed: Right Eye Retinal Laser Pending Studies Studies pending at discharge: no Medical Emergencies . Who to Call and When: Medical Emergencies: If at any time you feel your situation is an emergency, please call 911 immediately. . Non-Emergent Contact Non-Emergency issues call your: [employer] . . "Provider Documentation" section prepared by Isaiah Conde. .
[2017-08-30] MEDS: FENTANYL CITRATE INJ 50 MCG/1 ML 2 ML VIAL IV PRN ×5 (13:50→14:36)
[2017-08-30 14:50] VITALS: TEMP 36.4
--- NOTE | 2017-08-30 15:12 | Anesthesia Progress Nt - [facility] ---
Anesthesia Post Op Note Date & Time Aug 30, 2017 at 15:11 Vital Signs Pain Intensity: 5.0 Vital Signs Past 12 Hours Date Time Temp Pulse Resp B/P (MAP) Pulse Ox O2 Delivery O2 Flow Rate FiO2 08/30/17 14:50 36.4 62 16 130/77 (94) 94 Room Air 08/30/17 14:45 64 18 95 08/30/17 14:45 36.4 65 18 08/30/17 14:41 115/67 08/30/17 14:40 64 11 96 08/30/17 14:40 64 11 08/30/17 14:36 125/62 08/30/17 14:35 67 17 98 08/30/17 14:35 66 17 08/30/17 14:31 122/66 08/30/17 14:30 61 16 100 08/30/17 14:30 62 16 08/30/17 14:26 122/70 08/30/17 14:25 56 7 100 08/30/17 14:25 57 7 08/30/17 14:21 126/68 08/30/17 14:20 64 7 100 08/30/17 14:20 63 7 08/30/17 14:16 128/74 08/30/17 14:15 63 12 95 08/30/17 14:15 65 12 08/30/17 14:11 126/77 08/30/17 14:10 68 16 08/30/17 14:10 68 16 98 08/30/17 14:06 127/81 08/30/17 14:05 64 17 100 08/30/17 14:05 64 17 08/30/17 14:01 135/77 08/30/17 14:00 65 15 08/30/17 14:00 65 15 100 08/30/17 13:56 120/95 08/30/17 13:55 63 16 08/30/17 13:55 63 16 100 17 13:51 135/78 08/30/17 13:50 65 11 100 17 13:50 66 11 17 13:47 136/78 17 13:46 136/78 17 13:45 68 14 08/30/17 13:45 70 14 100 08/30/17 13:41 143/76 08/30/17 13:40 36.6 67 12 143/76 100 Mask 6 08/30/17 09:50 36.6 59 16 124/69 (87) 99 Room Air Notes Mental Status: alert / awake / arousable, participated in evaluation Pt Amnestic to Procedure: Yes Nausea / Vomiting: adequately controlled Pain: adequately controlled Airway Patency, RR, SpO2: stable & adequate BP & HR: stable & adequate Hydration State: stable & adequate Anesthetic Complications: no major complications apparent
[2017-08-30 15:13] VITALS: BP 119/70; PULSE 67; O2SAT 94
== END | disposition home or self-care (01) ==
LOC: X.SURG 09:16
PROVIDERS: ATTEND Ophthalmology
DX: H33.33 Multiple defects of retina without detachment (principal); Z98.41 Cataract extraction status, right eye; Z90.710 Acquired absence of both cervix and uterus; I10 Essential (primary) hypertension; J45.909 Unspecified asthma, uncomplicated; F41.9 Anxiety disorder, unspecified; K21.9 Gastro-esophageal reflux disease without esophagitis

== ENCOUNTER → 2018-01-21 | Outpatient (CLI) | payer OTHER ==
[~2018-01-21] MED LIST changes: -ACETAMINOPHEN 325 MG TAB PO PRN; -ATROPINE SULFATE 0.1 MG/ML 5ML SYR IV PRN; -BUPIVACAINE HCL 0.75% 10 ML AMP/VIAL ONE; -CEFAZOLIN SOD 1 GM VIAL ONE; -DEXAMETHASONE SOD INJ 4 MG/ML VIAL ONE; -EpHEDrine SULFATE 50MG/5ML SYR ONE; -EpINEphrine INJ 1MG/ML AMP 1 MG/ML AMP ONE; -FENTANYL CITRATE INJ 50 MCG/1 ML 2 ML VIAL ONE; -HYALURONIDASE HUMAN 150 UNIT/ML INJ ONE; -INDOCYANINE GREEN 25 MG/10 ML ONE; -LACTATED RINGER'S 1000ML 500 ML IV SCH; -LIDOCAINE HCL 2% 2 ML VIAL (20MG/ML) ONE; -MIDAZOLAM HCL 1 MG/ML 2ML VIAL ONE; -ONDANSETRON INJ 2 MG/ML 2 ML VIAL IV PRN; -ONDANSETRON INJ 2 MG/ML 2 ML VIAL ONE; -POVIDONE-IODINE OP SOLN (SURGERY CNTR CHARGING ONLY) ONE; -PROPARACAINE 0.5% OP SOLN PER DROP CHARGE OPR SCH; -PROPOFOL IV EMULSION 10 MG/ML 20 ML VIAL IV ONE; -TIMOLOL MALEATE 0.5% OP SOLN PER DROP CHARGE ONE; -TRIAMCINOLONE ACETONIDE OPHTH 40 MG/ML VIAL STERILE IO ONE
--- NOTE | 2018-01-21 11:17 | DIAGNOSTIC IMAGING REPORT ---
R FINGER(S) MIN 2 VIEWS ROUTINE CLINICAL HISTORY: 52 years-old Female presenting with pain in the right first finger, swelling, no history of trauma. TECHNIQUE: Frontal, oblique, and lateral views of the right first finger were obtained. COMPARISON: None. FINDINGS: No acute fracture or malalignment. No advanced degenerative change. No radiographic soft tissue abnormality. IMPRESSION: No acute osseous injury. Electronically signed by: Kojo Mortensen M.D. 01/21/2018 11:15 AM Dictated Date/Time: 01/21/2018 11:14 AM
--- NOTE | 2018-01-21 11:19 | DIAGNOSTIC IMAGING REPORT ---
R TOE(S) MIN 2 VIEWS CLINICAL HISTORY: 52 years-old Female presenting with PAIN IN UNSPECIFIED Finger, localized Edema, other. TECHNIQUE: Frontal, oblique, and lateral views of the right first toe were obtained. COMPARISON: None. FINDINGS: No acute fracture or malalignment. No advanced degenerative change. No radiographic soft tissue abnormality. IMPRESSION: No acute osseous injury. Electronically signed by: Kojo Mortensen M.D. 01/21/2018 11:17 AM Dictated Date/Time: 01/21/2018 11:16 AM
== END | disposition home or self-care (01) ==
LOC: C.RAD1850 10:45
PROVIDERS: ATTEND Family Medicine
DX: M79.674 Pain in right toe(s) (principal); R60.0 Localized edema; M79.89 Other specified soft tissue disorders; M79.644 Pain in right finger(s)

== ENCOUNTER → 2018-04-29 | Outpatient (CLI) | payer OTHER ==
--- NOTE | 2018-05-03 07:00 | MAMMOGRAPHY REPORT ---
BILATERAL DIGITAL SCREENING MAMMOGRAM TOMOSYNTHESIS WITH CAD: 04/29/2018 CLINICAL HISTORY: Routine screening. TECHNIQUE: The study was acquired using full field digital technology and interpreted from soft copy. Breast tomosynthesis in addition to standard 2D mammography was performed. Current study was also ev aluated with a Computer Aided Detection (CAD) system. COMPARISON: Comparison is made to exams dated: 04/28/2017 mammogram, 04/27/2016 mammogram, 04/24/2015 m ammogram, 04/23/2014 mammogram, 04/20/2013 mammogram, and 04/18/2012 mammogram - [facility] ter. BREAST COMPOSITION: There are scattered areas of fibroglandular density in both breasts. FINDINGS: No suspicious masses, calcifications, or areas of architectural distortion are noted in either breast . There has been no significant interval change compared to prior exams. A linear scar marker overli es the right upper outer breast. IMPRESSION: ACR BI-RADS CATEGORY 1: NEGATIVE There is no mammographic evidence of malignancy. A 1 year screening mammogram is recommended.( 019) The patient will receive written notification of the results. Some breast cancers are not detected with mammography. A negative mammographic report should not kyle y biopsy if a clinically suggestive mass is present. Bhumika Roa M.D. ah/:04/29/2018 16:05:50 It Business Analyst: RT Zuleika(R)(M), [facility] letter sent: Normal 1/2 BI-RADS Code: ACR BI-RADS Category 1: Negative
== END | disposition home or self-care (01) ==
LOC: C.MAMM 15:38
PROVIDERS: ATTEND Obstetrics & Gynecology
DX: Z12.31 Encounter for screening mammogram for malignant neoplasm of breast (principal)

== ENCOUNTER 2021-02-28 05:42 | Observation (INO) ==
--- NOTE | 2021-02-21 13:08 | Anesthesiology Consultation ---
Date of Service February 21, 2021 Assessment & Plan (1) Encounter for pre-operative examination: Chart Review Chart Review: Acceptable Risk for Surgery (pending preop Covid testing results ) and Patient NOT seen in Pre Admission Testing Per nursing assessment 02/21/2021, patient denies any recent travel. No known Covid infection in the past 90 days. No known Covid positive contacts or Covid related symptoms. Preop Covid testing scheduled 02/26/21 in [place]= will await results. Pt is fully vaccinated. History Surgery Operation Date: 02/28/21 09:55 Proposed Procedures p Left Ankle Posterior Tibial Tendon Transfer, Flexor Digitorum Longus Tendon Transfer - DO kera Escalante Medializing Calxaneal Osteotomy, Laateral Column lengthening of Calcaneus with Autograft - DO kera Escalante Iliac Crest Bone Graft [place] - DO kera Escalante Percutaneous Tendon Achilles Lengthening - Teddy Mendiola DO Height/Weight Height: 5 ft 5 in Weight: 86.636 kg Allergies Allergy/AdvReac Type Severity Reaction Status Date / Time Cephalosporins Allergy Unknown RASH Verified 02/21/21 08:24 morphine AdvReac Intermediate SEVERE Verified 02/21/21 08:24 NAUSEA AND VOMITING erythromycin base AdvReac Mild GI upset Verified 02/21/21 08:24 lisinopril AdvReac Mild cough Verified 02/21/21 08:24 codeine AdvReac Unknown SEVERE Verified 02/21/21 08:24 NAUSEA AND VOMITING Medications Home Medications Medication Instructions Recorded Confirmed Last Taken escitalopram oxalate [Lexapro] 20 mg PO QAM 06/08/19 02/21/21 01/02/21 09:00 fluticasone furoate-vilanterol 1 inh INHALATION QAM 06/08/19 02/21/21 12/25/20 [Breo Ellipta] montelukast [Singulair] 10 mg PO HS 06/08/19 02/21/21 12/24/20 atorvastatin 20 mg PO HS 12/25/20 02/21/21 12/24/20 clobetasol 1 applic TOPICAL DIRECTED PRN 12/25/20 02/21/21 Unknown hydrochlorothiazide 12.5 mg PO QAM 12/25/20 02/21/21 01/02/21 09:00 losartan 50 mg PO QAM 12/25/20 02/21/21 01/02/21 omeprazole 40 mg PO BID 12/25/20 02/21/21 01/02/21 09:00 dicyclomine 20 mg PO TID PRN #20 tab 12/26/20 02/21/21 01/02/21 09:00 metoclopramide HCl [Reglan] 5 mg PO Q8H PRN #10 tab 01/02/21 02/21/21 Unknown albuterol sulfate 1 inh INHALATION QID PRN 02/21/21 02/21/21 Unknown Past Medical History Medical History (Updated 02/21/21 @ 13:06 by Carmelina Phillips PA-C) Anxiety Asthma well controlled rare res inh use Bilateral tinnitus Dyslipidemia Gastroesophageal reflux disease concurrent with and due to paraesophageal hernia History of esophageal stricture History of palpitations related to anxiety Hypertension Hypertrophy of both inferior nasal turbinates Insomnia Past Family History Family History Mother Breast cancer Hypertension Daughter Gastroparesis Pulmonary embolism Father Heart disease Diabetes Past Surgical History Surgical History H/O breast biopsy right H/O detached retina repair right H/O laparoscopy H/O oral surgery tooth extractions History of cataract surgery left History of esophagogastroduodenoscopy (EGD) Hx of salpingo-oophorectomy, bilateral S/P colonoscopy S/P dilation and curettage S/P endometrial ablation S/P hysterectomy S/P sinus surgery S/P wrist surgery left Social History Smoking Status: Never smoker Do You Dip or Chew Tobacco: No Hx Alcohol Use: No Hx Substance Use: No substance use type: does not use Lab Results Anesthesia Preop Results Results Anesthesia Widget: WBC 6.46 K/uL (4.8-10.8) 01/02/21 Hgb 15.4 g/dL (12.0-16.0) 01/02/21 Hct 45.5 % (37-47) 01/02/21 Plt 346 K/uL (130-400) 01/02/21 Na 138 mmol/L (136-145) 01/02/21 K 3.4 mmol/L (3.5-5.1) L 01/02/21 Cl 105 mmol/L (98-107) 01/02/21 CO2 29 mmol/L (21-32) 01/02/21 BUN 9 mg/dl (7-18) 01/02/21 Creat 0.78 mg/dl (0.6-1.2) 01/02/21 Glucose Level 90 mg/dl (70-99) 01/02/21 Urine Color Yellow 01/02/21 Urine Appearance Clear (Clear) 01/02/21 Urine pH 7.0 (4.5-7.5) 01/02/21 Urine Specific [place] 1.009 (1.000-1.030) 01/02/21 Urine Protein Negative (Negative) 01/02/21 Urine Glucose (UA) Negative (Negative) 01/02/21 Urine Ketones Negative (Negative) 01/02/21 Urine Blood Negative (Negative) 01/02/21 Urine Nitrite Negative (Negative) 01/02/21 Urine Bilirubin Negative (Negative) 01/02/21 Urine Urobilinogen Negative (Negative) 01/02/21 Urine Leukocyte Esterase Negative (Negative) 01/02/21 Testing Electrocardiogram Date: 02/14/21 Findings: + NSR @ (60 bpm ) Normal EKG per cardio Chest X-Ray Date: 12/31/20 Findings: + NAD PA Chest with Abdominal Series Non obstructed abdominal bowel gas pattern.
--- NOTE | 2021-02-27 17:17 | History & Physical Report ---
Date of Service February 27, 2021 Assessment & Plan (1) Posterior tibial tendon dysfunction, left: Schedule left posterior tibial tendon reconstruction with flexor digitorum longus tendon transfer, medializing calcaneal osteotomy, lateral column lengthening of the calcaneus with autograft, left iliac crest bone graft harvest, percutaneous tendo Achilles lengthening for 02.28.21. All potential risks, benefits, complications, alternatives, and rehab were discussed with the patient. The patient wishes to proceed with the surgery as indicated. Follow-up 2 weeks postop. Aspirin 81 mg twice daily x4 weeks postop for DVT prophylaxis. (2) Pes planus of left foot: (3) Nontraumatic tear of left tibialis posterior tendon: (4) Achilles tendon contracture, left: History of Present Illness Chief Complaint: left ankle pain and swelling Primary Care Provider: Yasemin Medellin DO This is a patient treated conservatively for left medial ankle pain and swelling. She was treated with bracing and PT for PTT tendinitis but failed the PT. She then had an MRI that noted a PTT tear and later had a steroid injection. She had persistent pain and worsening flat foot. She is now being set up for surgical management. Allergies Allergy/AdvReac Type Severity Reaction Status Date / Time Cephalosporins Allergy Unknown RASH Verified 02/21/21 08:24 morphine AdvReac Intermediate SEVERE Verified 02/21/21 08:24 NAUSEA AND VOMITING erythromycin base AdvReac Mild GI upset Verified 02/21/21 08:24 lisinopril AdvReac Mild cough Verified 02/21/21 08:24 codeine AdvReac Unknown SEVERE Verified 02/21/21 08:24 NAUSEA AND VOMITING Home Medications Medication Instructions Recorded Confirmed Type escitalopram oxalate [Lexapro] 20 mg PO QAM 06/08/19 02/21/21 History fluticasone furoate-vilanterol 1 inh INHALATION QAM 06/08/19 02/21/21 History [Breo Ellipta] montelukast [Singulair] 10 mg PO HS 06/08/19 02/21/21 History atorvastatin 20 mg PO HS 12/25/20 02/21/21 History clobetasol 1 applic TOPICAL DIRECTED PRN 12/25/20 02/21/21 History hydrochlorothiazide 12.5 mg PO QAM 12/25/20 02/21/21 History losartan 50 mg PO QAM 12/25/20 02/21/21 History omeprazole 40 mg PO BID 12/25/20 02/21/21 History dicyclomine 20 mg PO TID PRN #20 tab 12/26/20 02/21/21 Rx metoclopramide HCl [Reglan] 5 mg PO Q8H PRN #10 tab 01/02/21 02/21/21 Rx albuterol sulfate 1 inh INHALATION QID PRN 02/21/21 02/21/21 History Past Med/Surg History Medical History (Updated 02/27/21 @ 17:14 by Kenneht Collier PA-C) Anxiety Asthma well controlled rare res inh use Bilateral tinnitus Dyslipidemia Gastroesophageal reflux disease concurrent with and due to paraesophageal hernia History of esophageal stricture History of palpitations related to anxiety Hypertension Hypertrophy of both inferior nasal turbinates Insomnia Surgical History H/O breast biopsy right H/O detached retina repair right H/O laparoscopy H/O oral surgery tooth extractions History of cataract surgery left History of esophagogastroduodenoscopy (EGD) Hx of salpingo-oophorectomy, bilateral S/P colonoscopy S/P dilation and curettage S/P endometrial ablation S/P hysterectomy S/P sinus surgery S/P wrist surgery left Family History Mother Breast cancer Hypertension Daughter Gastroparesis Pulmonary embolism Father Heart disease Diabetes Social History Smoking Status: Never smoker Second Hand Exposure: No; Hx Alcohol Use: No Hx Substance Use: No Preferred Language: Andorran Communication Ability: Effective Satellite Installer Required: No Beliefs That Will Affect Care: None Current Living Situation: Spouse Feels Safe at Home: Yes Assistive Devices: Glasses Physical Exam Constitutional: well developed and well nourished; no acute distress ENMT: external ear and nose normal, oropharynx normal Neck: trachea midline, no thyromegaly Respiratory: normal respiratory effort, lungs clear to auscultation Cardiovascular: Rate/Rhythm: regular rate and regular rhythm Gastrointestinal (Abdomen): normal bowel sounds, soft, nontender, no hepatosplenomegaly Musculoskeletal: Ankle: + deformity (left pes planovalgus), + limited ROM of ankle (left dorsiflexion) and + joint line tenderness (ankle) (left PTT); no skin erythema and no ecchymosis Skin: no rashes, warm and dry Trauma: no evidence of skin trauma Neurologic: normal touch/pain/proprioception Psychiatric: A+Ox3, euthymic affect Speech: normal rate/rhythm/volume of speech Lymphatic: no cervical or axillary lymphadenopathy
[~2021-02-28 05:42] MED LIST changes: +ANCEF - ALLERGY NOTED TO ORDERED MEDICATION SCH; -CETI10TA84 PO; -ESCI1TAB10 PO; -HYZ/10015 PO; -METO25TA3 PO; -OMEP40CA41 PO; -PLMIN90 INH; -SNG10 PO
[2021-02-28] MEDS ORDERED: CLINDAMYCIN 600 MG/54 ML BAG IV SCH (06:00)
[2021-02-28] MEDS ORDERED: LR 15ML/HR IV SCH (06:00)
[2021-02-28] MEDS ORDERED: BUPIVACAINE 0.25% 30 ML VIAL ONE (06:31)
[2021-02-28] MEDS ORDERED: EPINEPHrine INJ 1 MG/ML AMP ONE (06:31)
[2021-02-28] MEDS ORDERED: DEXAMETHASONE SOD INJ 4 MG/ML VIAL ONE ×2 (06:32→06:48)
[2021-02-28] MEDS ORDERED: ONDANSETRON INJ 2 MG/ML 2 ML VIAL ONE (06:48)
[2021-02-28] MEDS ORDERED: LIDOCAINE 2% 2 ML VIAL/AMP(20MG/ML) INFIL ONE (06:48)
[2021-02-28] MEDS ORDERED: PROPOFOL IV EMULSION 10 MG/ML 20 ML VIAL IV ONE ×2 (06:48→09:03)
[2021-02-28] MEDS ORDERED: fentaNYL citrate 100 MCG/2 ML VIAL ONE ×2 (06:48→08:08)
[2021-02-28] MEDS ORDERED: MIDAZOLAM HCL 1 MG/ML 2ML VIAL ONE ×2 (06:48→06:52)
[2021-02-28] MEDS ORDERED: BUPIVACAINE 0.5 % 5 MG/1 ML MPF 30ML VIAL ONE (07:08)
--- NOTE | 2021-02-28 07:24 | History & Physical Bridge Note ---
Date of Service February 28, 2021 History & Physical Bridge Note I have examined the patient, reviewed the History & Physical and in the interval since the performance of the History & Physical I have noted the following changes of clinical significance: no changes noted
[2021-02-28] MEDS ORDERED: ePHEDrine sulfate 50 MG/ML AMP IV PRN (07:38)
[2021-02-28] MEDS ORDERED: fentaNYL citrate 100 MCG/2 ML VIAL IV PRN (07:38)
[2021-02-28] MEDS ORDERED: ATROPINE SULFATE 0.1 MG/ML 10ML SYR IV PRN (07:38)
[2021-02-28] MEDS ORDERED: PROMETHAZINE HCL 6.25 MG in SODIUM CHLORIDE 0.9% 50 ML IV PRN (07:38)
[2021-02-28] MEDS ORDERED: ONDANSETRON INJ 2 MG/ML 2 ML VIAL IV PRN ×2 (07:38→12:12)
[2021-02-28] MEDS ORDERED: THROMBIN 5000 UNITS KIT ONE (07:41)
[2021-02-28] MEDS ORDERED: GELATIN SPONGE SZ 100 ONE (07:41)
[2021-02-28] MEDS ORDERED: BUPIVACAINE/EPINEPHRINE 0.5% MPF 1:200,000 30 ML VIAL ONE (07:41)
[2021-02-28] MEDS ORDERED: MoRPHine SULFATE PF 1 MG/ML 10 ML AMP/VIAL ONE (08:25)
[2021-02-28] MEDS ORDERED: MoRPHine SULFATE 2 MG/ML CARP IM ONE (09:01)
[2021-02-28] MEDS ORDERED: ALBUTEROL HFA INHALER 8.5 GM ONE (09:52)
--- NOTE | 2021-02-28 10:57 | Post Operative Brief Note ---
Immediate Post Op Note v1 Date of Surgery February 28, 2021 Pre & Post Diagnosis Operation Date: 02/28/21 07:15 Pre-Op Diagnosis: (1) Posterior tibial tendon dysfunction, left: (2) painful pes planus of left foot: (3) Nontraumatic tear of left tibialis posterior tendon: (4) Achilles tendon contracture, left: Post-Op Diagnosis: (1) Posterior tibial tendon dysfunction, left: (2) painful pes planus of left foot: (3) Nontraumatic tear of left tibialis posterior tendon: (4) Achilles tendon contracture, left: I identified the patient and participated in the time-out.: Yes Procedure Operation Date: 02/28/21 07:15 Actual Procedures p Left Ankle Posterior Tibial Tendon reconstruction with Flexor Digitorum Longus Tendon Transfer,(Left) - DO kera Escalante Medializing Calcaneal Osteotomy with screw fixation, Lateral Column Lengthening of Calcaneus with Autograft,(Left) - DO kera Escalante Iliac Crest Bone Graft [place](Left) - DO kera Escalante Percutaneous Tendon Achilles Lengthening(Left) - Teddy Mendiola DO Surgeon Teddy Mendiola DO Poly Area Supervisor Kenneth Collier PA-C Estimated Blood Loss 3 Findings Consistent with Post-Op Diagnosis Specimens None Anesthesia Type General Regional Complications none Disposition Accompanied Patient To Recovery: No Disposition: Recovery Room
--- NOTE | 2021-02-28 10:58 | Fluoroscopy Report ---
FL ankle LT 2V CLINICAL HISTORY: LT ANKLE. Status post left fourth reconstruction. COMPARISON STUDY: None FLUOROSCOPY TIME: 10 seconds. NUMBER OF FLUOROSCOPIC IMAGES: 3 FINDINGS: Operative fluoroscopic images presented for review shows screws within calcaneal bone and within the tarsal region. Subcutaneous surgical prem are seen. IMPRESSION: As above. ACT 112: Negative or not required by law. The above report was generated using voice recognition software. It may contain grammatical, syntax o r spelling errors. Electronically signed by: Inna Gaston DO 02/28/2021 10:57 AM
--- NOTE | 2021-02-28 11:55 | Operative Report (OR) ---
DATE OF SURGERY: 02/28/2021. PREOPERATIVE DIAGNOSES: 1. Left posterior tibial tendon tear. 2. Painful pes planovalgus. 3. Achilles tendon contracture. 4. Posterior tibial tendon dysfunction grade 2. POSTOPERATIVE DIAGNOSES: 1. Left posterior tibial tendon tear. 2. Painful pes planovalgus. 3. Achilles tendon contracture. 4. Posterior tibial tendon dysfunction grade 2. PROCEDURE: 1. Left posterior tibial tendon reconstruction with flexor digitorum longus tendon transfer. 2. Medialized and calcaneal osteotomy with screw fixation. 3. Lateral column lengthening of the calcaneus with autograft. 4. Percutaneous tendo-Achilles lengthening. 5. Left iliac crest bone graft harvest. SURGEON: Teddy Mendiola DO. CORONARY CLINICAL SPECIALIST: Kenneth Collier PA-C. who was present for patient positioning, sterile prep and drape, management of retractors and instruments. He was present through the critical portions of the case including wound closure, application of sterile dressing and transport of the patient to recovery. ANESTHESIA: General, regional. SPECIMENS: None. DRAINS: None. COMPLICATIONS: None. BLOOD LOSS: 3 mL PERTINENT HISTORY: This is a 55-year-old woman who sustained a painful traumatic rupture of her left posterior tibial tendon. She thought it was a sprain. Over the next several months to a year, she was treating it conservatively including bracing, anti-inflammatories, rest, physical therapy, observation, modification activity, modification shoe inserts and steroid injections. Radiographs and MRI demonstrated severe posterior tibial tendinosis with tearing and posterior tibial tendon dysfunction grade 2. The patient was then scheduled for surgery as indicated. DESCRIPTION OF PROCEDURE: The patient was taken to the operative suite. The consent was reviewed and surgical site was identified. The patient had undergone a general, regional anesthetic and then transferred to the Operating Room table. Tourniquet was placed high in the left thigh over cast padding. Left iliac crest and left lower extremity were then sterilely prepped and draped in usual fashion. The left lower extremity was then elevated and exsanguinated with Esmarch bandage, tourniquet inflated to 350 mmHg. Next, left foot was held in dorsiflexion. 11 blade scalpel was used to perform a three part percutaneous tendo Achilles lengthening and then the small stab incisions were then closed with a skin stapler. Next, a 15 blade scalpel was used to make an incision in oblique fashion on the lateral aspect of the left calcaneus. The incision was deepened to subcutaneous tissue. Meticulous hemostasis with electrocautery. Full thickness flaps were developed. Next, periosteum was elevated with small periosteal elevator. Hohmann retractors were placed and a sagittal saw was used to perform the osteotomy in the posterior aspect of the calcaneus. Tuberosity was then shifted medially and then stabilized with a guide pin from the 7.3 mm cannulated screw set under fluoroscopic control. Next, a short thread 7.3 mm cannulated screw of appropriate length was then placed over the guide pin and then used to compress the osteotomy under fluoroscopic control. Next, the guide pin was removed. The wound was irrigated with sterile Normal Saline and the dermis was closed using buried 3-0 Vicryl sutures and the skin was closed using 4-0 Nylon. Next, a 15 blade scalpel incision was made over the anterior process of the calcaneus and lateral calcaneus, the incision deepened through subcutaneous tissue, meticulous hemostasis with electrocautery. The extensor digitorum brevis was identified, incised and then elevated both superiorly and inferiorly. Peroneal tendon sheath was elevated and Hohmann retractors were placed in the sinus tarsi and then the inferior aspect of the calcaneus. A sagittal saw was used to make an osteotomy approximately 1.5 cm proximal to the calcaneal cuboid joint. Smooth osteotomes were placed into the osteotomies to open the osteotomy site and then a cervical lamina hotel services supervisor was placed in the opening. The opening of appropriate width was then measured and the cervical lamina hotel services supervisor was then removed from the osteotomy and a moist lap was placed over the foot. Next, after injection of the left iliac crest with approximately 15 cc of 0.5% Marcaine with Epinephrine a 15 blade scalpel incision was made over the iliac crest approximately 1 cm proximal to the ASIS. This was deepened to subcutaneous tissue with electrocautery down to the level of the fascia. Fascia was incised in line with the skin incision and then the iliac crest was clearly visualized, soft tissue and fascia was elevated medially and laterally. Small Turner retractors were placed in the inner and outer table of the iliac crest. It was irrigated with sterile Normal Saline. Appropriate length of bone wedge was measured and marked with electrocautery and then a sagittal saw was used to resect the appropriate width trapezoidal tricortical graft from the pelvis. Next, after irrigation and suction the graft was then placed on the back table and a small amount of cancellous graft was excised from the iliac crest. The wound was then finally irrigated with Sterile Normal Saline. The defect in the iliac crest was then packed with Gelfoam and Thrombin. This was then closed with the fascia overlying the iliac crest with #1 Vicryl sutures. Next, this was injected with 1 cc of Duramorph and 5 cc of 0.5% Marcaine with Epinephrine. The dermis was closed using buried interrupted 2-0 Vicryl sutures and the skin was closed using skin prem. Approximately 5 more cc of 0.5% Marcaine with Epinephrine was injected. No oozing or bleeding was encountered and a sterile compressive dry dressing was applied overwrapped with an OpSite. Next, the graft was then placed in the lateral osteotomy of the foot to lengthen the lateral column using a cervical lamina hotel services supervisor to span the osteotomy. After the graft was tamped in place with a bone tamp and mallet the cervical lamina hotel services supervisor was removed. Next, the adjacent bone graft obtained from the iliac crest was then packed around the tricortical graft and then the graft was then stabilized with a single fully threaded 4.0 mm small fragment screw placed under lag technique compressing the graft in place. Next, the 2-0 Vicryl suture was used to close the extensor digitorum brevis and the dermis was closed using buried interrupted 3-0 Vicryl. Skin was closed using 4-0 Nylon sutures. Next, a 15 blade scalpel was used to make a long curvilinear incision along the medial aspect of the hind foot overlying the posterior tibial tendon. The incision was deepened to subcutaneous tissue. Meticulous hemostasis achieved with electrocautery. The incision was extended to the first metatarsal head. Next, after incision of the lacinate ligament the flexor retinaculum was encountered. This was incised in line with skin incision overlying the posterior tibial tendon. The posterior tibial tendon was clearly visualized. Tenotomy scissors were then used to complete the release of the flexor retinaculum and the posterior tibial tendon was then elevated sharply with combination of electrocautery and 15 blade scalpel from its insertion on the navicular. The damaged portion of the tendon distally was then resected and then a whip stitch was placed with #2 FiberWire suture in the distal aspect of the posterior tibial tendon. Next, dissection was continued in the mid foot in the interval between the first metatarsal and the abductor hallucis. A Weitlaner retractor was placed in the wound and then after careful dissection the master knot of Juan M was released and the flexor digitorum longus and flexor hallucis longus were clearly visualized distally. Tenodesis was performed with interrupted #2 FiberWire suture with toes held in neutral alignment in line with the metatarsals. Next, a whip stitch was placed in the distal aspect of the FDL tendon and then the FDL was then released distally to allow it to be retracted proximally posterior to the medial malleolus after a small cut was made in the FDL sheath posterior to the medial malleolus. After the tendon was withdrawn posteriorly, the soft tissues were elevated from the medial navicular and a 4.5 mm drill hole was made in the medial navicular. A Funk suture passer was used to transfer the tendon from the plantar to the dorsal aspect of the navicular. It was then sutured back down to itself using a sharp tendon passer and a Pulvertaft weave technique with #2 fiber wire suture. Several passes were made and then this was then incorporated into the posterior tibial tendon. Next, free needle was used to tie the ends of the posterior tibial tendon and FDL tendon into the adjacent tendons. Sutures were then tied and cut. The wound was irrigated with Sterile Normal Saline. Deep drain was placed, a #10 Vietnamese single Hemovac drain medially and then the flexor sheath was closed using interrupted 2-0 Vicryl sutures. The interval between the first metatarsal and the abductors were closed using interrupted 2-0 Vicryl sutures. The dermis was closed using buried interrupted 3-0 Vicryl suture and skin closed with 4-0 Nylon. A sterile compressive Adelso Chua plaster splint was applied and wrapped with an Zack wrap with the foot held in slight equinus and inversion. The tourniquet was released, patient awakened and taken to recovery in stable condition. Job ID: [id number] [facility]
[2021-02-28] MEDS ORDERED: NO NSAIDS SCH (12:12)
[2021-02-28] MEDS ORDERED: METOCLOPRAMIDE HCL 5 MG TABLET PO PRN (12:12)
[2021-02-28] MEDS ORDERED: ALBUTEROL HFA 8 GM INHALER INH PRN (12:12)
[2021-02-28] MEDS ORDERED: DICYCLOMINE HCL 20 MG TAB PO PRN (12:12)
[2021-02-28] MEDS ORDERED: MAGNESIUM HYDROXIDE SUSP 30 ML UDC PO PRN (12:12)
[2021-02-28] MEDS ORDERED: METOCLOPRAMIDE HCL INJ 5 MG/ML 2 ML VIAL IV PRN (12:12)
[2021-02-28] MEDS ORDERED: NALOXONE HCL 0.4 MG/1 ML VIAL/CARP IV PRN (12:12)
[2021-02-28] MEDS ORDERED: diphenhydrAMINE Capsule 25 MG CAP PO PRN (12:12)
[2021-02-28] MEDS ORDERED: bisacodyL 10 MG SUPP PR PRN (12:12)
[2021-02-28] MEDS ORDERED: PHARMACY GLYCEMIC MGMT CONSULT PRN (12:30)
--- NOTE | 2021-02-28 12:37 | Anesthesiology Progress Note ---
Date of Service February 28, 2021 Anesthesia Post Procedure Vital Signs Vital Signs: Temp Pulse Pulse Resp BP BP Pulse Ox 02/28/21 12:33 36.4 C L 91 H 16 143/79 H 98 02/28/21 12:05 36.5 C 97 H 16 144/84 H 02/28/21 11:50 89 18 152/79 H 97 02/28/21 11:40 36.5 C 91 H 16 151/77 H 97 02/28/21 11:30 85 12 150/83 H 96 02/28/21 11:20 90 16 133/85 97 02/28/21 11:15 95 H 18 157/84 H 93 02/28/21 11:08 36.0 C L 99 H 16 150/75 H 93 02/28/21 06:15 36.8 C 75 18 162/85 H 98 Pain Intensity Left Ankle: Pain Intensity: 0 Transfer of Care Handoff Completed per policy Notes Mental Status: alert / awake / arousable Patient Amnestic to Procedure: Yes Nausea / Vomiting: adequately controlled Pain: adequately controlled Airway Patency, RR, SpO2: stable & adequate BP & HR: stable & adequate Hydration State: stable & adequate Anesthetic Complications: no major complications apparent Notes: block working well in pacu
[2021-02-28] MEDS ORDERED: CLOBETASOL PROPIONATE 0.05% OINT 15 GM TUBE EXT PRN (12:49)
[2021-02-28] MEDS: HYDROmorphone INJ 0.5 MG/0.5 ML SYR IV PRN ×2 (13:28→18:33)
[2021-02-28] MEDS: SODIUM CHLORIDE 0.9% 1000ML 1,000 ML IV SCH ×2 (13:31→23:20)
--- NOTE | 2021-02-28 13:35 | Pharmacy Report ---
Pharmacy Glycemic Short Note 2 - Date of Service February 28, 2021 - Glycemic Short BSG Results (Last 24 hours): 02/28/21 12:48 POC Glucose 130 H OUTPATIENT ANTIDIABETIC REGIMEN: * N/A ASSESSMENT: * 55yo female s/p left ankle surgery * Pt is not on any antidiabetic medications as an outpatient . No A1c in chart. * BSG only slightly elevated post-operatively at 130 mg/dl. * Pt did receive dexamethasone 8mg IV intraoperatively. This can cause hyperglycemia in both diabetic and non-diabetic patients. * Will start with bolus insulin monotherapy and titrate based on BSG trends * Will order A1c with AM labs to assess for degree of outpatient control PLAN FOR INPATIENT GLYCEMIC CONTROL: * Basal insulin * N/A - hold off for now. Will initiate if BSG > 180 * Bolus insulin * NovoLog per scale ACHS or Q6hrs while NPO * Goal Range: Low 110 mg/dL - High 140 mg/dL * Correction Factor: 25 mg/dL/unit * Nutritional / Prandial insulin per carb ratio of 1 unit per 15 grams CHO consumed PLAN FOR DISCHARGE: * TBD based on A1c
[2021-02-28] MEDS: ACETAMINOPHEN 500 MG TAB PO SCH ×2 (14:42→21:41)
[2021-02-28] MEDS: INSULIN ASPART 100 UNITS/ML 3 ML PEN SC SCH ×3 (14:43→21:34)
[2021-02-28] MEDS: CLINDAMYCIN 600 MG in DEXTROSE 5% 50 ML IV SCH ×2 (16:47→23:14)
[2021-02-28] MEDS: PANTOprazole 40 MG TAB PO SCH (20:29)
[2021-02-28] MEDS: DOCUSATE SODIUM 100 MG CAP PO SCH (20:29)
[2021-02-28] MEDS: ASPIRIN 81 MG ECTAB PO SCH (20:29)
[2021-02-28] MEDS ORDERED: SENNA 8.6 MG TAB PO SCH (21:00)
[2021-02-28] MEDS ORDERED: MONTELUKAST SODIUM 10 MG TABLET PO SCH (21:00)
[2021-02-28] MEDS ORDERED: ATORVASTATIN 20 MG TAB PO SCH (21:00)
[2021-03-01] MEDS: oxyCODONE HCL IR 5 MG TAB (IMMEDIATE RELEASE) PO PRN ×2 (05:28→10:16)
[2021-03-01] MEDS: ACETAMINOPHEN 500 MG TAB PO SCH ×2 (05:28→14:43)
[2021-03-01 05:49] LABS: Hematocrit (blood only) 37.1 % (37-47); Hemoglobin 12.4 g/dL (12.0-16.0); Mean Corpuscular Hemoglobin 31.3 pg (25-34); Mean Corpuscular Hgb Conc 33.4 g/dL (32-36); Mean Corpuscular Volume 93.7 fL (80-100); Mean Platelet Volume 9.9 fL (7.4-10.4); Platelet Count 247 K/uL (130-400); RDW Coefficient of Variation 13.1 % (11.5-14.5); RDW Standard Deviation 45.1 fL (36.4-46.3); Red Blood Count 3.96 M/uL (4.2-5.4); White Blood Count 11.24 K/uL (4.8-10.8)
[2021-03-01 06:16] LABS: Calcium 8.8 mg/dl (8.5-10.1); Creatinine Clr Calc Pharmacy 131.2 ml/min; Est GFR (African American) 124.8 ml/min; Est GFR (Non-African American) 107.6 ml/min
[2021-03-01] MEDS: HYDROmorphone INJ 0.5 MG/0.5 ML SYR IV PRN ×2 (08:50→12:52)
--- NOTE | 2021-03-01 08:56 | Orthopedic Progress Note ---
Date of Service March 01, 2021 Assessment & Plan (1) Posterior tibial tendon dysfunction, left: 1. Left posterior tibial tendon reconstruction with flexor digitorum longus tendon transfer. 2. Medialized and calcaneal osteotomy with screw fixation. 3. Lateral column lengthening of the calcaneus with autograft. 4. Percutaneous tendo-Achilles lengthening. 5. Left iliac crest bone graft harvest DVT prophylaxis: ASA BID x 4 weeks, TEDS F/U in 2 weeks with ortho Admission and Anticipated Discharge Date Admission Date: February 28, 2021 Subjective Patient resting comfortably in bed. No complaints. Denies significant pain, N/V, CP, SOB, calf pain Physical Exam Physical Exam: Toes mobile, NVI. Calves soft, non tender. Splint in place. Results & Data ([facility]) Vital Signs (Past 12 Hours) Vital Signs Temp Pulse Pulse Resp BP Pulse Ox 03/01/21 07:20 37.1 C 78 18 109/69 96 03/01/21 04:23 36.7 C 67 16 120/70 96 02/28/21 21:40 36.9 C 82 18 146/73 H 96
[2021-03-01] MEDS ORDERED: FLUTICASONE/VILANTEROL 200/25MCG 14 PUFFS/INHALER INH SCH (09:00)
[2021-03-01] MEDS ORDERED: MULTIVITAMIN TAB PO SCH (09:00)
[2021-03-01] MEDS ORDERED: hydroCHLOROthiazide 25 MG TAB PO SCH (09:00)
[2021-03-01] MEDS ORDERED: ESCITALOPRAM OXALATE 20 MG TAB PO SCH (09:00)
[2021-03-01] MEDS ORDERED: LOSARTAN POTASSIUM 50 MG TAB PO SCH (09:00)
[2021-03-01] MEDS: ASPIRIN 81 MG ECTAB PO SCH (09:01)
[2021-03-01] MEDS: PANTOprazole 40 MG TAB PO SCH (09:01)
[2021-03-01] MEDS: DOCUSATE SODIUM 100 MG CAP PO SCH (09:01)
[2021-03-01] MEDS: INSULIN ASPART 100 UNITS/ML 3 ML PEN SC SCH ×2 (09:08→12:55)
[2021-03-02 01:58] LABS: EAG mmol/L 5.5 (calc); HA1C 5.1 (<5.7)
--- NOTE | 2021-03-13 16:13 | Discharge Summary ---
Date of Service March 13, 2021 Admission HPI Per Admitting Provider This is a patient treated conservatively for left medial ankle pain and swelling. She was treated with bracing and PT for PTT tendinitis but failed the PT. She then had an MRI that noted a PTT tear and later had a steroid injection. She had persistent pain and worsening flat foot. She is now being set up for surgical management. Principal Diagnosis Left posterior tibial tendon dysfunction Discharge Exam Constitutional well developed and well nourished; no acute distress ENMT external ear and nose normal, oropharynx normal Neck trachea midline, no thyromegaly Respiratory normal respiratory effort, lungs clear to auscultation Cardiovascular Rate/Rhythm: regular rate and regular rhythm Gastrointestinal (Abdomen) normal bowel sounds, soft, nontender, no hepatosplenomegaly Musculoskeletal Left ankle: bulky splint intact, C/D/I. Toes are mobile. Skin no rashes, warm and dry Trauma: no evidence of skin trauma Neurologic normal touch/pain/proprioception Psychiatric A+Ox3, euthymic affect Speech: normal rate/rhythm/volume of speech Lymphatic no cervical or axillary lymphadenopathy Discharge Data Allergies Allergy/AdvReac Type Severity Reaction Status Date / Time Cephalosporins Allergy Mild RASH Verified 02/28/21 06:10 codeine AdvReac Intermediate SEVERE Verified 02/28/21 06:10 NAUSEA AND VOMITING morphine AdvReac Intermediate SEVERE Verified 02/28/21 06:10 NAUSEA AND VOMITING erythromycin base AdvReac Mild GI upset Verified 02/28/21 06:10 lisinopril AdvReac Mild cough Verified 02/28/21 06:10 Procedures Performed Operation Date: 02/28/21 07:15 Actual Procedures p Left Ankle Posterior Tibial Tendon Transfer, Flexor Digitorum Longus Tendon Transfer,(Left) - Teddy Mendiola DO s Medializing Calcaneal Osteotomy, Lateral Column Lengthening of Calcaneus with Autograft,(Left) - DO kera Escalante Iliac Crest Bone Graft [place](Left) - DO kera Escalante Percutaneous Tendon Achilles Lengthening(Left) - Teddy Mendiola DO Ordered Studies 02/28/21 05:00 US - OR guided needle placemen Routine 02/28/21 07:15 FL ankle LT 2V Routine Hospital Course (1) Posterior tibial tendon dysfunction, left: The patient underwent the noted procedure and was admitted for pain control post operatively. She maintained her NWB status and participated in PT. Her pain was controlled on POD #1 and she was discharged home that day. 1. Left posterior tibial tendon reconstruction with flexor digitorum longus tendon transfer. 2. Medialized and calcaneal osteotomy with screw fixation. 3. Lateral column lengthening of the calcaneus with autograft. 4. Percutaneous tendo-Achilles lengthening. 5. Left iliac crest bone graft harvest DVT prophylaxis: ASA BID x 4 weeks, TEDS F/U in 2 weeks with ortho Total Time Total Time Spent Total Time Spent (In Minutes): 30 Total Time Includes: Examination of the Patient, Discharge Planning and Medication Reconciliation Discharge Plan Discharge Items Patient Disposition: Home - Self-Care Reason For Visit: Left Ankle Posterior tendon Tear Discharge Diagnosis: Left posterior tibial tendon tear Activity: Per Instructions section Non-emergency contact: Surgeon Call non-emergency contact if: your pain is not controlled, your pain is worsening and your temperature is above 101 Follow-up/Referrals: Yasemin Medellin DO [Primary Care Provider] - Diet: Regular Addtl Attending Provider Instructions: ACTIVITY RECOMMENDATIONS: Limitations: No weight bearing to affected limb at all times. SPECIAL CARE INSTRUCTIONS: * Take Aspirin 81 mg every 12 hours for 4 weeks for postoperative blood clot prophylaxis. * Some drainage onto the dressing is normal and is no cause for alarm. * Some swelling is natural especially after walking. * When resting, keep your foot elevated above the level of your heart. * Call [facility] if you notice: -Increased drainage -Fever over 101 degrees F -Severe constant pain BANDAGE: * Leave bandage/cast in place unless otherwise directed. * Keep bandage/cast dry at all times. FOLLOW UP VISIT WITH DR. MENDIOLA If appointment is not already scheduled: Please call [facility] after you get home today to schedule a follow-up appointment for [address] Mendiola at . Pending Studies at Discharge: No Stand-Alone Forms: [facility], Opioid Pain Management, Smoking Cessation Medications and DC Order Prescriptions: New sennosides [Senokot] 8.6 mg Tablet 17.2 mg PO HS 30 Days Qty: 60 RF: 0 aspirin 81 mg Tablet,Delayed Release (Dr/Ec) 81 mg PO BID 30 Days Qty: 60 RF: 0 acetaminophen 500 mg Tablet 1,000 mg PO Q8 30 Days Qty: 180 RF: 0 docusate sodium 100 mg Capsule 100 mg PO BID PRN (Reason: constipation) 30 Days RF: 0 oxycodone 5 mg Tablet 5 - 10 mg PO Q4H PRN (Reason: pain) Qty: 18 RF: 0 multivitamin [Daily-Amandeep] Tablet 1 tab PO QAM 30 Days Qty: 30 RF: 0 No Nsaids 1 dose Not Applicable UD 30 Days RF: 0 Continued montelukast [Singulair] 10 mg Tablet 10 mg PO HS RF: 0 escitalopram oxalate [Lexapro] 20 mg Tablet 20 mg PO QAM RF: 0 Breo Ellipta 200-25 mcg/dose Blister With Device 1 inh INHALATION QAM RF: 0 losartan 50 mg tablet 50 mg PO QAM RF: 0 atorvastatin 20 mg tablet 20 mg PO HS RF: 0 omeprazole 20 mg capsule,delayed release(DR/EC) 40 mg PO BID RF: 0 clobetasol 0.05 % ointment 1 applic TOPICAL DIRECTED PRN (Reason: Skin Irritation) RF: 0 hydrochlorothiazide 12.5 mg tablet 12.5 mg PO QAM RF: 0 dicyclomine 20 mg tablet 20 mg PO TID PRN (Reason: abdominal pain) Qty: 20 RF: 0 metoclopramide HCl [Reglan] 5 mg tablet 5 mg PO Q8H PRN (Reason: nausea and vomiting) Qty: 10 RF: 0 albuterol sulfate 90 mcg/actuation Hfa Aerosol Inhaler 1 inh INHALATION QID PRN (Reason: Wheezing) RF: 0 Discharge Orders: Discharge Order (Routine); Ordered 03/01/21 Ordered By: Soledad Davidson Admission Data Admit Date/Time: 02/28/21 11:39 Attending Provider: Teddy Mendiola Admit Provider: Teddy Mendiola Primary Care Provider: Yasemin Medellin Other Interventions: Discharge Summary Assessment (RN) Last Done: 03/01/21 13:00
== END 2021-03-01 15:23 | disposition home or self-care (01) ==
LOC: ASU 05:42 → INTOOBSV 11:39 → 3E 11:39
DX: Z88.1 Allergy status to other antibiotic agents; Z88.5 Allergy status to narcotic agent; E78.5 Hyperlipidemia, unspecified; M21.42 Flat foot [pes planus] (acquired), left foot; S86.212A Strain of muscle(s) and tendon(s) of anterior muscle group at lower leg level, left leg, initial encounter; M76.822 Posterior tibial tendinitis, left leg; J45.909 Unspecified asthma, uncomplicated; X58.XXXA Exposure to other specified factors, initial encounter; Z79.899 Other long term (current) drug therapy; M67.02 Short Achilles tendon (acquired), left ankle; Z88.8 Allergy status to other drugs, medicaments and biological substances

== ENCOUNTER 2023-07-19 03:47 | Observation (INO) ==
[2023-07-19] MEDS ORDERED: ONDANSETRON INJ 2 MG/ML 2 ML VIAL IV STA (03:56)
[2023-07-19] MEDS ORDERED: KETOROLAC TROMETHAMINE 15 MG/ML VIAL IV STA (03:56)
[2023-07-19] MEDS ORDERED: SODIUM CHLORIDE 0.9% 1,000 ML IV STA (03:56)
--- NOTE | 2023-07-19 03:59 | Emergency Department Note ---
History of Present Illness General Chief complaint: Flank Pain Stated complaint: Lower Back Pain, Abdominal Pain Time Seen by Provider: 07/19/23 03:49 History of Present Illness This 57-year-old female presents ER complaining of severe left flank left lower quadrant pain today. She was here last month with a kidney stone. She does not think she has passed it. She sees urology in a few days and is not sure who she will be seeing. Patient denies chest pain, dyspnea, fevers, injury to the area, urinary symptoms. She states this feels different than her kidney stone and history of diverticulitis. Home Medications Medication Instructions Recorded Confirmed Type montelukast 10 mg tablet 10 mg PO HS 06/08/19 11/27/22 History (Singulair) atorvastatin 20 mg tablet 20 mg PO HS 12/25/20 11/27/22 History clobetasol 0.05 % topical ointment 1 applic topical DIRECTED PRN 12/25/20 11/27/22 History Skin Irritation hydrochlorothiazide 12.5 mg tablet 12.5 mg PO QAM 12/25/20 11/27/22 History omeprazole 20 mg capsule,delayed 40 mg PO BID 12/25/20 11/27/22 History release dicyclomine 20 mg tablet 20 mg PO TID PRN abdominal pain 12/26/20 11/27/22 Rx #20 tabs albuterol sulfate 90 mcg/actuation 1 inh inhalation QID PRN Wheezing 02/21/21 11/27/22 History aerosol inhaler amitriptyline 10 mg tablet 10 mg PO DAILY PRN 10/27/22 11/27/22 History fluticasone 250 mcg-salmeterol 50 1 inh inhalation BID 10/27/22 11/27/22 History mcg/dose blistr powdr for inhalation (Advair Diskus) meloxicam 15 mg tablet 15 mg PO DAILY 10/27/22 11/27/22 History potassium chloride 20 mEq 20 meq PO DAILY 10/27/22 11/27/22 History tablet,extended release ascorbate calcium (vitamin C) PO 11/27/22 11/27/22 History cholecalciferol (vitamin D3) PO 11/27/22 11/27/22 History cyanocobalamin (vitamin B-12) PO 11/27/22 11/27/22 History valacyclovir 1 gram tablet 1,000 mg PO BID 5 days #10 tabs 11/27/22 11/27/22 Rx (Valtrex) ondansetron 4 mg disintegrating 4 mg PO Q6H PRN nausea and 06/30/23 Rx tablet vomiting #12 tabs oxycodone 5 mg tablet 5 mg PO Q6H #12 tabs 06/30/23 Rx tamsulosin 0.4 mg capsule (Flomax) 0.4 mg PO DAILY #7 caps 06/30/23 Rx Allergies Allergy/AdvReac Type Severity Reaction Status Date / Time Cephalosporins Allergy Mild RASH Verified 11/27/22 11:51 codeine AdvReac Intermediate SEVERE Verified 11/27/22 11:51 NAUSEA AND VOMITING morphine AdvReac Intermediate SEVERE Verified 11/27/22 11:51 NAUSEA AND VOMITING erythromycin base AdvReac Mild GI upset Verified 11/27/22 11:51 lisinopril AdvReac Mild cough Verified 11/27/22 11:51 Past Med/Surg History Medical History Diverticulitis History of palpitations related to anxiety Insomnia Hypertrophy of both inferior nasal turbinates Hypertension History of esophageal stricture Gastroesophageal reflux disease concurrent with and due to paraesophageal hernia Dyslipidemia Bilateral tinnitus Asthma well controlled rare res inh use Anxiety Surgical History History of esophagogastroduodenoscopy (EGD) History of cataract surgery left H/O detached retina repair right S/P endometrial ablation S/P sinus surgery S/P wrist surgery left Hx of salpingo-oophorectomy, bilateral S/P hysterectomy H/O laparoscopy H/O breast biopsy right S/P dilation and curettage H/O oral surgery tooth extractions S/P colonoscopy Family History Mother Breast cancer Hypertension Daughter Gastroparesis Pulmonary embolism Lupus anticoagulant disorder Father Heart disease Diabetes Social History Smoking Status: Never smoker Second Hand Exposure: No; Do You Dip or Chew Tobacco: No; Hx Alcohol Use: No Hx Substance Use: No Preferred Language: Irish Communication Ability: Effective 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: No Beliefs That Will Affect Care: None marital status: Current Living Situation: Spouse current occupational status: employed 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 Feels Safe at Home: Yes Diet Comment: low sugar Physical Activity Frequency Comment: needs repeat foot surgery so exercise is difficult Assistive Devices: Walker Review of Systems A total of 10 systems reviewed and were otherwise negative Physical Exam Vital Signs Vital Signs - 24 hr 07/19/23 03:51 07/19/23 04:01 07/19/23 04:10 Temperature 36.8 C Temperature Source Oral Pulse Rate 64 68 73 Pulse Rhythm Regular Respiratory Rate 18 Respiratory Effort / Characteristics Non-Labored Spontaneous Respiratory Depth Normal Respiratory Pattern Regular Blood Pressure 157/87 H Blood Pressure Mean 110 Pulse Oximetry 100 95 Oxygen Delivery Method Room Air Room Air Sepsis Recent Fever Within 48 Hours No Sepsis New/Unexplained Change in Mental Status N/A Sepsis Action Taken by Nursing No Action Required VITALS: Vitals are noted on the nurse's note and reviewed by myself. Vital signs stable. GENERAL: Pleasant female, in no acute distress, nondiaphoretic, well-developed well-nourished. SKIN: The skin was without rashes, erythema, edema, or bruising. There is no tenting of the skin. Capillary reflex less than 2 seconds. HEAD: Normocephalic atraumatic. EARS: External auditory canals clear, EYES: Pupils equal round and reactive to light and accommodation. Conjunctivae without injection, sclerae without icterus. Extraocular movements intact. NOSE: Patent, turbinates without inflammation or discharge. MOUTH: Mucous membranes moist. Pharynx without erythema or exudate. Uvula midline. Airway patent. Tongue does not deviate. NECK: Supple without nuchal rigidity. No lymphadenopathy. No thyromegaly. Cervical spine is nontender. No JVD. HEART: Regular rate and rhythm LUNGS: Clear to auscultation bilaterally without wheezes, rales or rhonchi. No retractions or accessory muscle use. ABDOMEN: Positive bowel sounds x 4. Normal tympanic percussion. Soft, tender left lower quadrant, without masses or organomegaly. Davenport sign negative. No guarding or rebound tenderness. No CVA tenderness MUSCULOSKELETAL: No muscle atrophy, erythema, or edema noted. NEURO: Patient was alert and oriented to person place and time. Normal sensation to light and sharp touch. No focal neurological deficits. Course Administered Medications Morphine Sulfate (Morphine Sulfate 4 Mg/Ml 1 Ml Carp\Vial) 4 mg IV Q15M PRN PRN Reason: Pain Stop: 08/02/23 03:55 Last Admin: 07/19/23 04:03 Dose: 4 mg Documented By: Discontinued Medications Sodium Chloride (Nss) 1,000 mls @ 999 mls/hr IV .Q1H1M STA Stop: 07/19/23 04:56 Last Infusion: 07/19/23 05:34 Dose: Infused Documented By: Admin: 07/19/23 04:00 Dose: 999 mls/hr Documented By: Ioversol (Optiray 320 100ml) 100 ml IV ONCE ONE Stop: 07/19/23 05:29 Last Admin: 07/19/23 05:29 Dose: 90 ml Documented By: GISSELLE Ketorolac Tromethamine (Ketorolac Tromethamine 15 Mg/Ml Vial) 10 mg IV NOW STA Stop: 07/19/23 03:57 Last Admin: 07/19/23 04:01 Dose: 10 mg Documented By: Ondansetron HCl (Ondansetron Inj 2 Mg/Ml 2 Ml Vial) 4 mg IV NOW STA Stop: 07/19/23 03:57 Last Admin: 07/19/23 04:00 Dose: 4 mg Documented By: Medical Decision Making Medical Records Attestation: I reviewed the patient's medical records. Home Medications Current Medication List: was personally reviewed by me Laboratory Data Attestation: I reviewed the patient's lab results. 07/19/23 03:55 07/19/23 03:55 Lab Results 07/19/23 07/19/23 Range/Units 03:53 03:55 WBC 11.90 H (4.8-10.8) K/ul RBC 4.43 (4.20-5.40) M/uL Hgb 14.2 (12.0-16.0) g/dl Hct 41.7 (37.0-47.0) % MCV 94.1 (80.0-100.0) fL MCH 32.1 (25.0-34.0) pg MCHC 34.1 (32.0-36.0) g/dL RDW Std Deviation 44.9 (36.4-46.3) fL RDW Coeff of William 12.9 (11.5-14.5) % Plt Count 312 (130-400) K/uL MPV 10.6 (9.4-12.4) fL Immature Gran % (Auto) 0.4 % Neut % (Auto) 79.3 % Lymph % (Auto) 12.4 % [place] % (Auto) 6.6 % Eos % (Auto) 0.9 % Baso % (Auto) 0.4 % Neut # (Auto) 9.43 H (1.40-6.50) K/uL Lymph # (Auto) 1.48 (1.20-3.40) K/uL [place] # (Auto) 0.78 H (0.11-0.59) K/uL Eos # (Auto) 0.11 (0.00-0.50) K/uL Baso # (Auto) 0.05 (0.00-0.20) K/uL Immature Gran # (Auto) 0.05 (0.01-0.20) K/uL Sodium 141 (136-145) mmol/L Potassium 3.6 (3.5-5.1) mmol/L Chloride 104 (98-107) mmol/L Carbon Dioxide 30 (21-32) mmol/L Anion Gap 7 (3-11) BUN 20 (6-23) mg/dl Creatinine 0.99 (0.6-1.2) mg/dl Est Cr Clr Drug Dosing 69.7 ml/min Est GFR ( Amer) 73.8 ml/min Est GFR (Non-Af Amer) 63.7 ml/min BUN/Creatinine Ratio 20.2 H (10-20) Glucose 118 H (70-99(Fasting)) mg/dl Calcium 9.6 (8.6-10.3) mg/dl Total Bilirubin 0.9 (0.2-1.0) mg/dl AST 19 (13-39) U/L ALT 19 (7-52) U/L Alkaline Phosphatase 113 H (34-104) U/L Total Protein 7.5 (6.0-8.3) gm/dl Albumin 4.5 (3.4-5.0) gm/dl Globulin 3.0 (2.5-4.0) gm/dl Albumin/Globulin Ratio 1.5 (0.9-2) Lipase 35 (11-82) U/L Urine Color Dark Yellow Urine Appearance Clear (Clear) Urine pH 5.5 (4.5-7.5) Ur Specific [place] 1.021 (1.000-1.030) Urine Protein Trace H (Negative) Urine Glucose (UA) Negative (Negative) Urine Ketones Trace H (Negative) Urine Blood 3+ H (Negative) Urine Nitrite Negative (Negative) Urine Bilirubin Negative (Negative) Urine Urobilinogen Negative (Negative) Ur Leukocyte Esterase Negative (Negative) Urine WBC (Auto) 5-10 H (0-5) /hpf Urine RBC (Auto) >30 H (0-4) /hpf U Hyaline Cast (Auto) 1-5 (0-5) /lpf U Epithel Cells (Auto) >30 H (0-5) /lpf Urine Bacteria (Auto) Negative (Negative) Imaging Data Attestation: I personally reviewed and interpreted this imaging study as follows: MDM Narrative Prior records/ancillary studies reviewed. Triage Nursing notes reviewed. Additional history obtained from the EMS The patient's history was concerning for left lower quadrant and flank pain. Differential diagnosis: Etiologies such as renal colic, appendicitis, diverticulitis, mesenteric ischemia, aortic pathology, infections, inflammatory bowel disease, PUD, biliary pathology, UTI, as well as others were entertained. Physical examination findings: As above. ER treatment provided: Toradol, morphine, Zofran, IV fluids, Flomax was ordered On reassessment the patient felt better. Diagnostic interpretation by me: The labs Independently Interpreted by myself revealed mild leukocytosis, improved from prior. Urinalysis revealed hematuria. There was no sign of UTI. Imaging studies: CT abdomen pelvis concerning for left ureteral stone with hydronephrosis per my independent interpretation Consultation: A consultation was placed with the hospitalist. The case was discussed and diagnostics were reviewed. The patient was evaluated in the ER for further treatment. It appears that the patient has isolated renal colic from a left sided stone. Patient was still moderate to severe amount of pain. She did request admission. Medicine was consulted the case was discussed. She will be admitted to the medical service for further evaluation and treatment. By the evaluation outlined above emergent etiologies such as appendicitis, diverticulitis, mesenteric ischemia, aortic pathology, infections, inflammatory bowel disease, PUD, biliary pathology, UTI, as well as others were deemed relatively unlikely. The pt informed about the findings as listed above. All questions were answered and pleased with the treatment. The chart was completed utilizing [employer] Speech voice recognition software. Grammatical errors, random word insertions, pronoun errors, and incomplete sentences are an occassional consequence of this system due to software limitations, ambient noise, and hardware issues. Any formal questions or concerns about the content, text, or information contained within the body of this dictation should be directly addressed to the physician hospital administrative assistant for clarification. Impression & Plan Renal colic on left side, Left nephrolithiasis, Ureterolithiasis Discharge Plan Visit Data Chief Complaint: Flank Pain Stated Complaint: Lower Back Pain, Abdominal Pain ED Provider: Elvia Can ED Midlevel Provider: Kait Richardson Discharge Problem: Renal colic on left side, Left nephrolithiasis, Ureterolithiasis Patient Disposition: Admitted As Inpatient Condition: Good Forms Stand Alone Forms: [facility] [employer] Prescriptions Prescriptions: No Action fluticasone propion-salmeterol [Advair Diskus] 250-50 mcg/dose blister with device 1 inh inhalation BID meloxicam 15 mg tablet 15 mg PO DAILY amitriptyline 10 mg tablet 10 mg PO DAILY PRN potassium chloride 20 mEq tablet extended release 20 meq PO DAILY ascorbate calcium (vitamin C) PO cyanocobalamin (vitamin B-12) PO cholecalciferol (vitamin D3) PO valacyclovir [Valtrex] 1 gram tablet 1,000 mg PO BID 5 Days Qty: 10 0RF montelukast [Singulair] 10 mg Tablet 10 mg PO HS atorvastatin 20 mg tablet 20 mg PO HS omeprazole 20 mg capsule,delayed release(DR/EC) 40 mg PO BID clobetasol 0.05 % ointment 1 applic TOPICAL DIRECTED PRN (Reason: Skin Irritation) hydrochlorothiazide 12.5 mg tablet 12.5 mg PO QAM dicyclomine 20 mg tablet 20 mg PO TID PRN (Reason: abdominal pain) Qty: 20 0RF tamsulosin [Flomax] 0.4 mg capsule 0.4 mg PO DAILY Qty: 7 0RF ondansetron 4 mg tablet,disintegrating 4 mg PO Q6H PRN (Reason: nausea and vomiting) Qty: 12 0RF oxycodone 5 mg tablet 5 mg PO Q6H Qty: 12 0RF Rx Instructions: Initial Treatment albuterol sulfate 90 mcg/actuation Hfa Aerosol Inhaler 1 inh INHALATION QID PRN (Reason: Wheezing) Referrals Referrals: Yasemin Medellin DO [Primary Care Provider] -
[2023-07-19] MEDS: MoRPHine SULFATE 4 MG/ML 1 ML CARP\\VIAL IV PRN ×4 (04:03→20:42)
[2023-07-19 04:20] LABS: Appearance Urine Clear (Clear); Bacteria Urine Automated Negative (Negative); Bilirubin Urine Negative (Negative); Blood Urine 3+ (Negative); Color Urine Dark Yellow; Epithelial Cell Urine Auto >30 /lpf (0-5); Glucose Urine UA Negative (Negative); Ketones Urine Trace (Negative); Leukocyte Esterase Urine Negative (Negative); Nitrite Urine Negative (Negative); Protein Urine Trace (Negative); RBC Urine Automated >30 /hpf (0-4); Specific Gravity Urine 1.021 (1.000-1.030); Urobilinogen Urine Negative (Negative); pH Urine 5.5 (4.5-7.5)
[2023-07-19 04:38] LABS: Basophils # (auto) 0.05 K/uL (0.00-0.20); Basophils % (auto) 0.4 %; Eosinophils # (auto) 0.11 K/uL (0.00-0.50); Eosinophils % (auto) 0.9 %; Hematocrit (blood only) 41.7 % (37.0-47.0); Hemoglobin 14.2 g/dl (12.0-16.0); Immature Granulocytes # (auto) 0.05 K/uL (0.01-0.20); Immature Granulocytes % (auto) 0.4 %; Lymphocytes # (auto) 1.48 K/uL (1.20-3.40); Lymphocytes % (auto) 12.4 %; Mean Corpuscular Hemoglobin 32.1 pg (25.0-34.0); Mean Corpuscular Hgb Conc 34.1 g/dL (32.0-36.0); Mean Corpuscular Volume 94.1 fL (80.0-100.0); Mean Platelet Volume 10.6 fL (9.4-12.4); Monocytes # (auto) 0.78 K/uL (0.11-0.59); Monocytes % (auto) 6.6 %; Neutrophils # (auto) 9.43 K/uL (1.40-6.50); Neutrophils % (auto) 79.3 %; Platelet Count 312 K/uL (130-400); RDW Coefficient of Variation 12.9 % (11.5-14.5); RDW Standard Deviation 44.9 fL (36.4-46.3); Red Blood Count 4.43 M/uL (4.20-5.40)
[2023-07-19 04:48] LABS: Albumin Globulin Ratio 1.5 (0.9-2); Albumin Level 4.5 gm/dl (3.4-5.0); BUN Creatinine Ratio 20.2 (10-20); Bilirubin,Total 0.9 mg/dl (0.2-1.0); Calcium 9.6 mg/dl (8.6-10.3); Creatinine Clr Calc Pharmacy 69.7 ml/min; Est GFR (African American) 73.8 ml/min; Est GFR (Non-African American) 63.7 ml/min; Potassium 3.6 mmol/L (3.5-5.1); Total Protein 7.5 gm/dl (6.0-8.3)
[2023-07-19] MEDS ORDERED: OPTIRAY 320 100ml IV ONE (05:28)
[2023-07-19] MEDS ORDERED: TAMSULOSIN HCL 0.4 MG CAP PO ONE (05:38)
--- NOTE | 2023-07-19 05:44 | CT Scan Report ---
Exam(s): CT ABDOMEN + PELVIS With Contrast IV Amt: 90 ML OPTIRAY 320 EXAM: CT Abdomen and Pelvis With Intravenous Contrast CLINICAL HISTORY: Reason for exam: llq/l flank pain, hx divertic and stone. TECHNIQUE: Axial computed tomography images of the abdomen and pelvis with intravenous contrast. Automated exposure control was utilized for the study. A dose lowering technique was utilized adhering to the principles of ALARA. CONTRAST: Patient received 90 ML OPTIRAY 320 of IV contrast COMPARISON: 07/01/2023 FINDINGS: Lung bases: Unremarkable. No mass. No consolidation. ABDOMEN: Liver: 2.4 cm hypodensity anterior left hepatic lobe. Unchanged from prior exam. Gallbladder and bile ducts: Unremarkable. No calcified stones. No ductal dilation. Pancreas: Unremarkable. No mass. No ductal dilation. Spleen: Unremarkable. No splenomegaly. Adrenals: Unremarkable. No mass. Kidneys and ureters: Delayed enhancement of the left renal parenchyma when compared with the right with left hydroureteronephrosis secondary to a 0.6 cm obstructing mid left ureteral calculus. Nonobstructing left lower pole intrarenal calculus. Right kidney is unremarkable without evidence of hydronephrosis. Right renal hypodensity measuring up to 1 cm representing a cyst. Stomach and bowel: Diverticulosis without evidence of diverticulitis. No obstruction. PELVIS: Appendix: No findings to suggest acute appendicitis. Bladder: Unremarkable. No mass. Reproductive: Uterus is surgically absent. ABDOMEN and PELVIS: Intraperitoneal space: Unremarkable. No free air. No significant fluid collection. Bones/joints: No acute fracture. No dislocation. Soft tissues: Unremarkable. Vasculature: Unremarkable. No abdominal aortic aneurysm. Lymph nodes: Unremarkable. No enlarged lymph nodes. IMPRESSION: Left-sided hydronephrosis with obstructive uropathy secondary to a 0.6 cm proximal left ureteral calculus Electronically signed by: David Caldwell MD 07/19/23 05:43 AM
[2023-07-19] MEDS ORDERED: CIPROFLOXACIN / D5W 400 MG/200 ML BAG IV SCH (06:00)
--- NOTE | 2023-07-19 06:35 | History & Physical Report ---
Date of Service July 19, 2023 Assessment & Plan (1) Left nephrolithiasis: Plan: 57yo female with obstructing ureteral calculi in the left with resultant hydronephrosis. Significant pain as well as nausea. She is afebrile, HD stable. Does have mild leukocytosis with WBC=11.9, no bacteria or evidence of infection on UA. Renal function is intact. Pain improved after Toradol, Morphine and Zofran -Admit to medical -Keep NPO -Strain urine -Pain control with Morphine PRN -Zofran PRN nausea -Continue Flomax -Strain urine -IVF - LR at 125mL/hr x 2L -Urology consultation appreciated History of Present Illness Chief Complaint: left flank pain Primary Care Provider: Yasemin Medellin DO Filomena Gupta is a pleasant 57yo female presenting with left flank pain and renal stone. She was originally seen in the ER on 06/30/23 with left sided back pain. She had a CT at that time that revealed a 4mm stone in the proximal left ureter near the left UPJ with mild left hydronephrosis as well as additional nonobstructing stones. She was treated with IVF, pain medication and Flomax with improvement and was ultimately sent home. She has felt well since then with no further flank pain until last night 07/18/23 around 23:00 when she developed acute left sided flank pain with associated nausea, vomiting and dry heaving. Pain has been severe - moving anteriorly. She took a Percocet but vomited it up then tried ice and heat as well as positional changes but was unable to relieve the pain. In the ER she is afebrile, mildly hypertensive otherwise stable ER Course: Toradol Morphine Zofran NSS Flomax Allergies Allergy/AdvReac Type Severity Reaction Status Date / Time Cephalosporins Allergy Mild RASH Verified 11/27/22 11:51 codeine AdvReac Intermediate SEVERE Verified 11/27/22 11:51 NAUSEA AND VOMITING morphine AdvReac Intermediate SEVERE Verified 11/27/22 11:51 NAUSEA AND VOMITING erythromycin base AdvReac Mild GI upset Verified 11/27/22 11:51 lisinopril AdvReac Mild cough Verified 11/27/22 11:51 Home Medications Medication Instructions Recorded Confirmed Type montelukast 10 mg tablet 10 mg PO HS 06/08/19 11/27/22 History (Singulair) atorvastatin 20 mg tablet 20 mg PO HS 12/25/20 11/27/22 History clobetasol 0.05 % topical ointment 1 applic topical DIRECTED PRN 12/25/20 11/27/22 History Skin Irritation hydrochlorothiazide 12.5 mg tablet 12.5 mg PO QAM 12/25/20 11/27/22 History omeprazole 20 mg capsule,delayed 40 mg PO BID 12/25/20 11/27/22 History release dicyclomine 20 mg tablet 20 mg PO TID PRN abdominal pain 12/26/20 11/27/22 Rx #20 tabs albuterol sulfate 90 mcg/actuation 1 inh inhalation QID PRN Wheezing 02/21/21 11/27/22 History aerosol inhaler amitriptyline 10 mg tablet 10 mg PO DAILY PRN 10/27/22 11/27/22 History fluticasone 250 mcg-salmeterol 50 1 inh inhalation BID 10/27/22 11/27/22 History mcg/dose blistr powdr for inhalation (Advair Diskus) meloxicam 15 mg tablet 15 mg PO DAILY 10/27/22 11/27/22 History potassium chloride 20 mEq 20 meq PO DAILY 10/27/22 11/27/22 History tablet,extended release ascorbate calcium (vitamin C) PO 11/27/22 11/27/22 History cholecalciferol (vitamin D3) PO 11/27/22 11/27/22 History cyanocobalamin (vitamin B-12) PO 11/27/22 11/27/22 History valacyclovir 1 gram tablet 1,000 mg PO BID 5 days #10 tabs 11/27/22 11/27/22 Rx (Valtrex) ondansetron 4 mg disintegrating 4 mg PO Q6H PRN nausea and 06/30/23 Rx tablet vomiting #12 tabs oxycodone 5 mg tablet 5 mg PO Q6H #12 tabs 06/30/23 Rx tamsulosin 0.4 mg capsule (Flomax) 0.4 mg PO DAILY #7 caps 06/30/23 Rx Past Med/Surg History Medical History Diverticulitis History of palpitations related to anxiety Insomnia Hypertrophy of both inferior nasal turbinates Hypertension History of esophageal stricture Gastroesophageal reflux disease concurrent with and due to paraesophageal hernia Dyslipidemia Bilateral tinnitus Asthma well controlled rare res inh use Anxiety Surgical History History of esophagogastroduodenoscopy (EGD) History of cataract surgery left H/O detached retina repair right S/P endometrial ablation S/P sinus surgery S/P wrist surgery left Hx of salpingo-oophorectomy, bilateral S/P hysterectomy H/O laparoscopy H/O breast biopsy right S/P dilation and curettage H/O oral surgery tooth extractions S/P colonoscopy Family History Mother Breast cancer Hypertension Daughter Gastroparesis Pulmonary embolism Lupus anticoagulant disorder Father Heart disease Diabetes Social History Smoking Status: Never smoker Second Hand Exposure: No; Do You Dip or Chew Tobacco: No; Hx Alcohol Use: No Hx Substance Use: No Preferred Language: Kiswahili Communication Ability: Effective Pizza Baker Required: No Beliefs That Will Affect Care: None marital status: Current Living Situation: Spouse current occupational status: employed 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 Feels Safe at Home: Yes Diet Comment: low sugar Physical Activity Frequency Comment: needs repeat foot surgery so exercise is difficult Assistive Devices: Walker Review of Systems Review of Systems: All systems reviewed & are unremarkable except as noted in HPI & below Physical Exam Physical Exam: General: patient resting comfortably, NAD, non-toxic in appearance, AA&O x 4 Skin: warm, dry, intact, no rashes or lesions HEENT: NC/AT, PERRL, EOMI, anicteric sclera, conjunctiva without injection, external ear normal to inspection and nontender, nares patent, moist mucus membranes, dentition intact, no oropharyngeal lesions, neck supple, trachea midline, no LAD, no thyromegaly, no JVD Heart: +S1/S2, regular, no m/r/g Lungs: equal air entry bilaterally, no rales/rhonchi/wheezes Abd: +BS, soft, NT/ND, no masses/organomegaly/ascites, + left flank pain and lower abdominal pain Ext: warm, 2+ pulses in UE/LE bilaterally, no clubbing/cyanosis or edema Neuro: nonfocal, patient AA&O x 4, speech intact, no facial droop, moving all extremities on command with equal strength 5/5 Results & Data Results & Data Vital Signs (Past 12 Hours) Vital Signs Temp Pulse Resp BP Pulse Ox O2 Del Method 07/19/23 05:30 69 24 157/87 H 99 Room Air 07/19/23 04:10 73 95 Room Air 07/19/23 04:01 68 07/19/23 03:51 36.8 C 64 18 157/87 H 100 Room Air Laboratory Results Laboratory Results WBC 11.90 K/ul (4.8-10.8) H 07/19/23 03:55 RBC 4.43 M/uL (4.20-5.40) 07/19/23 03:55 Hgb 14.2 g/dl (12.0-16.0) 07/19/23 03:55 Hct 41.7 % (37.0-47.0) 07/19/23 03:55 MCV 94.1 fL (80.0-100.0) 07/19/23 03:55 MCH 32.1 pg (25.0-34.0) 07/19/23 03:55 MCHC 34.1 g/dL (32.0-36.0) 07/19/23 03:55 RDW Std Deviation 44.9 fL (36.4-46.3) 07/19/23 03:55 RDW Coeff of William 12.9 % (11.5-14.5) 07/19/23 03:55 Plt Count 312 K/uL (130-400) 07/19/23 03:55 MPV 10.6 fL (9.4-12.4) 07/19/23 03:55 Immature Gran % (Auto) 0.4 % 07/19/23 03:55 Neut % (Auto) 79.3 % 07/19/23 03:55 Lymph % (Auto) 12.4 % 07/19/23 03:55 [place] % (Auto) 6.6 % 07/19/23 03:55 Eos % (Auto) 0.9 % 07/19/23 03:55 Baso % (Auto) 0.4 % 07/19/23 03:55 Neut # (Auto) 9.43 K/uL (1.40-6.50) H 07/19/23 03:55 Lymph # (Auto) 1.48 K/uL (1.20-3.40) 07/19/23 03:55 [place] # (Auto) 0.78 K/uL (0.11-0.59) H 07/19/23 03:55 Eos # (Auto) 0.11 K/uL (0.00-0.50) 07/19/23 03:55 Baso # (Auto) 0.05 K/uL (0.00-0.20) 07/19/23 03:55 Immature Gran # (Auto) 0.05 K/uL (0.01-0.20) 07/19/23 03:55 Sodium 141 mmol/L (136-145) 07/19/23 03:55 Potassium 3.6 mmol/L (3.5-5.1) 07/19/23 03:55 Chloride 104 mmol/L (98-107) 07/19/23 03:55 Carbon Dioxide 30 mmol/L (21-32) 07/19/23 03:55 Anion Gap 7 (3-11) 07/19/23 03:55 BUN 20 mg/dl (6-23) 07/19/23 03:55 Creatinine 0.99 mg/dl (0.6-1.2) 07/19/23 03:55 Est Cr Clr Drug Dosing 69.7 ml/min 07/19/23 03:55 Est GFR ( Amer) 73.8 ml/min 07/19/23 03:55 Est GFR (Non-Af Amer) 63.7 ml/min 07/19/23 03:55 BUN/Creatinine Ratio 20.2 (10-20) H 07/19/23 03:55 Glucose 118 mg/dl (70-99(Fasting)) H 07/19/23 03:55 Calcium 9.6 mg/dl (8.6-10.3) 07/19/23 03:55 Total Bilirubin 0.9 mg/dl (0.2-1.0) 07/19/23 03:55 AST 19 U/L (13-39) 07/19/23 03:55 ALT 19 U/L (7-52) 07/19/23 03:55 Alkaline Phosphatase 113 U/L (34-104) H 07/19/23 03:55 Total Protein 7.5 gm/dl (6.0-8.3) 07/19/23 03:55 Albumin 4.5 gm/dl (3.4-5.0) 07/19/23 03:55 Globulin 3.0 gm/dl (2.5-4.0) 07/19/23 03:55 Albumin/Globulin Ratio 1.5 (0.9-2) 07/19/23 03:55 Lipase 35 U/L (11-82) 07/19/23 03:55 Urine Color Dark Yellow 07/19/23 03:53 Urine Appearance Clear (Clear) 07/19/23 03:53 Urine pH 5.5 (4.5-7.5) 07/19/23 03:53 Ur Specific [place] 1.021 (1.000-1.030) 07/19/23 03:53 Urine Protein Trace (Negative) H 07/19/23 03:53 Urine Glucose (UA) Negative (Negative) 07/19/23 03:53 Urine Ketones Trace (Negative) H 07/19/23 03:53 Urine Blood 3+ (Negative) H 07/19/23 03:53 Urine Nitrite Negative (Negative) 07/19/23 03:53 Urine Bilirubin Negative (Negative) 07/19/23 03:53 Urine Urobilinogen Negative (Negative) 07/19/23 03:53 Ur Leukocyte Esterase Negative (Negative) 07/19/23 03:53 Urine WBC (Auto) 5-10 /hpf (0-5) H 07/19/23 03:53 Urine RBC (Auto) >30 /hpf (0-4) H 07/19/23 03:53 U Hyaline Cast (Auto) 1-5 /lpf (0-5) 07/19/23 03:53 U Epithel Cells (Auto) >30 /lpf (0-5) H 07/19/23 03:53 Urine Bacteria (Auto) Negative (Negative) 07/19/23 03:53 Impressions Abdomen/Pelvis CT 07/19/23 03:56 Exam(s): CT ABDOMEN + PELVIS With Contrast IV Amt: 90 ML OPTIRAY 320 EXAM: CT Abdomen and Pelvis With Intravenous Contrast CLINICAL HISTORY: Reason for exam: llq/l flank pain, hx divertic and stone. TECHNIQUE: Axial computed tomography images of the abdomen and pelvis with intravenous contrast. Automated exposure control was utilized for the study. A dose lowering technique was utilized adhering to the principles of ALARA. CONTRAST: Patient received 90 ML OPTIRAY 320 of IV contrast COMPARISON: 07/01/2023 FINDINGS: Lung bases: Unremarkable. No mass. No consolidation. ABDOMEN: Liver: 2.4 cm hypodensity anterior left hepatic lobe. Unchanged from prior exam. Gallbladder and bile ducts: Unremarkable. No calcified stones. No ductal dilation. Pancreas: Unremarkable. No mass. No ductal dilation. Spleen: Unremarkable. No splenomegaly. Adrenals: Unremarkable. No mass. Kidneys and ureters: Delayed enhancement of the left renal parenchyma when compared with the right with left hydroureteronephrosis secondary to a 0.6 cm obstructing mid left ureteral calculus. Nonobstructing left lower pole intrarenal calculus. Right kidney is unremarkable without evidence of hydronephrosis. Right renal hypodensity measuring up to 1 cm representing a cyst. Stomach and bowel: Diverticulosis without evidence of diverticulitis. No obstruction. PELVIS: Appendix: No findings to suggest acute appendicitis. Bladder: Unremarkable. No mass. Reproductive: Uterus is surgically absent. ABDOMEN and PELVIS: Intraperitoneal space: Unremarkable. No free air. No significant fluid collection. Bones/joints: No acute fracture. No dislocation. Soft tissues: Unremarkable. Vasculature: Unremarkable. No abdominal aortic aneurysm. Lymph nodes: Unremarkable. No enlarged lymph nodes. IMPRESSION: Left-sided hydronephrosis with obstructive uropathy secondary to a 0.6 cm proximal left ureteral calculus Electronically signed by: David Caldwell MD 07/19/23 05:43 AM Code Status & VTE Plan VTE Prophylaxis Plan VTE Prophylaxis will be ordered: Yes PG Care Time/CCT Total # of Minutes Spent Total Time Spent with Patient: Total time spent is greater than 50% in coordination of care (as documented) at patient's floor/unit and/or counseling patient: Coding Level of Care Code 84810 INT INP/OBS CARE 2/55MIN Diagnoses Left nephrolithiasis N20.0
[2023-07-19] MEDS ORDERED: MoRPHine SULFATE 2 MG/ML CARP IV PRN (10:20)
[2023-07-19] MEDS ORDERED: hydroCHLOROthiazide 25 MG TAB PO SCH (10:20)
[2023-07-19] MEDS ORDERED: ACETAMINOPHEN 325 MG TAB PO PRN (10:20)
[2023-07-19] MEDS ORDERED: LACTATED RINGER'S 1,000 ML IV SCH (10:20)
--- NOTE | 2023-07-19 10:28 | Urology Consultation ---
Date of Consultation July 19, 2023 Assessment & Plan (1) Ureterolithiasis: (2) Renal colic on left side: 57-year-old female admitted for left renal colic secondary to an obstructing 6 mm proximal left ureteral stone. Patient is afebrile and hemodynamically stable Labs reviewedcreatinine 0.99, WBC 11.9, hemoglobin 14.2 Urinalysis w/ 3+ blood, 5-10 WBC, >30 RBC, >30 epithelials, negative for bacteria CT imaging reviewed and discussednotable for an obstructing 6 mm proximal left ureteral stone, an additional left renal calculus Discussed options for stone management including trial of passage vs surgical intervention with left ureteral stent placement while inpatient. Discussed stone treatment would be scheduled at a later date. Discussed outpatient surgical options if pain is controlled. Ureteral stents were discussed as well as post-operative issues and pain management. - Patient would like to proceed with surgical intervention today. - Plan for cystoscopy, retrograde pyelogram and left ureteral stent placement with Dr. Cast. - Risks and benefits of procedure to be discussed with patient by Dr. Cast. - Will cover with IV ciprofloxacin preoperatively. - Continue supportive care. - Patient has a scheduled f/u in our office tomorrow and can keep this appointment to set up definitive stone treatment if she is discharged in time. Attending note: Patient independently assessed, examined, interviewed, and evaluated. Agree with note as above. Patient's vitals and labs were all reviewed. Pertinent values in the HPI and plan section. Imaging was reviewed interpreted by myself. Agree with read. Vitals were reviewed. Discussed findings extensively with patient and family. Reviewed with nurse practitioner as well as consulting physicians/team. Patient's complicated medical and surgical history was reviewed and summarized above. Patient's surgical, medical, social, and family history were all reviewed with pertinent values as above. Discussed patient's current diagnosis as well as concerns and issues. Reviewed different options moving forward. Discussed potential risks and benefits as well as possible options and concerns. Reviewed potential surgical options and interventions. Discussed potential issues and concerns related to intervention. Risk and benefits were discussed extensively with patient and any available family. Discussed potential risks related to anesthesia. Discussed risks of bleeding infection and injury. Risks and benefits discussed at length for procedure. These include bleeding, infection, injury to surrounding tissues or organs, and risks associated with anesthesia. Patient states understanding and agrees to proceed. Will sign consent and schedule. Plan for cystoscopy and possible left stent. History of Present Illness Attending Physician: Julissa Beckman DO History of Present Illness 57-year-old female with a left-sided obstructing proximal ureteral stone. Patient initially presented to the emergency department on 06/30/[address] scan was performed. CT showed an obstructing left proximal ureteral calculus. Her pain had improved and she was discharged from the ED. She returned to the ED today with onset of severe left flank pain, nausea and vomiting. Labs showed creatinine 0.99, WBC 11.9, hemoglobin 14.2. Urinalysis notable trace protein, trace ketones, 3+ blood, 5-10 WBC, >30 RBC, >30 epithelials, negative for bacteria. CT imaging reviewed and showed a 6 mm proximal left ureteral calculus with hydronephrosis; additional nonobstructing left renal calculus. Last ate at yesterday evening. She was afebrile and hemodynamically stable in the ED. ED course included Toradol, Morphine, Zofran, NSS, and Flomax. Reports pain is controlled now. She is voiding spontaneously. No nausea or vomiting. Denies fever or chills at present. No prior stone history. Allergies Allergy/AdvReac Type Severity Reaction Status Date / Time Cephalosporins Allergy Mild RASH Verified 07/19/23 10:57 codeine AdvReac Intermediate SEVERE Verified 07/19/23 10:57 NAUSEA AND VOMITING morphine AdvReac Intermediate SEVERE Verified 07/19/23 10:57 NAUSEA AND VOMITING erythromycin base AdvReac Mild GI upset Verified 07/19/23 10:57 lisinopril AdvReac Mild cough Verified 07/19/23 10:57 Home Medications Medication Instructions Recorded Confirmed Type montelukast 10 mg tablet 10 mg PO HS 06/08/19 07/19/23 History (Singulair) atorvastatin 20 mg tablet 20 mg PO HS 12/25/20 07/19/23 History clobetasol 0.05 % topical ointment 1 applic topical DIRECTED PRN 12/25/20 07/19/23 History Skin Irritation hydrochlorothiazide 12.5 mg tablet 12.5 mg PO QAM 12/25/20 07/19/23 History dicyclomine 20 mg tablet 20 mg PO TID PRN abdominal pain 12/26/20 07/19/23 Rx #20 tabs albuterol sulfate 90 mcg/actuation 1 inh inhalation QID PRN Wheezing 02/21/21 07/19/23 History aerosol inhaler amitriptyline 10 mg tablet 10 mg PO DAILY PRN Sleep 10/27/22 07/19/23 History meloxicam 15 mg tablet 15 mg PO DAILY 10/27/22 07/19/23 History potassium chloride 20 mEq 20 meq PO DAILY 10/27/22 07/19/23 History tablet,extended release ondansetron 4 mg disintegrating 4 mg PO Q6H PRN nausea and 06/30/23 07/19/23 Rx tablet vomiting #12 tabs oxycodone 5 mg tablet 5 mg PO Q6H #12 tabs 06/30/23 07/19/23 Rx cholecalciferol (vitamin D3) 25 25 mcg PO DAILY 07/19/23 07/19/23 History mcg (1,000 unit) chewable tablet (Vitamin D3) cyanocobalamin (vitamin B-12) 1,000 mcg PO DAILY 07/19/23 07/19/23 History 1,000 mcg tablet (Vitamin B-12) fluticasone 500 mcg-salmeterol 50 1 ea inhalation BID 07/19/23 07/19/23 History mcg/dose blistr powdr for inhalation (Advair Diskus) gabapentin 600 mg tablet 600 mg PO TID 07/19/23 07/19/23 History lifitegrast 5 % eye drops in a 1 drp OPB BID 07/19/23 07/19/23 History dropperette (Xiidra) losartan 50 mg tablet 50 mg PO DAILY 07/19/23 07/19/23 History omeprazole 40 mg capsule,delayed 40 mg PO DAILY 07/19/23 07/19/23 History release Patient History Medical History Diverticulitis History of palpitations related to anxiety Insomnia Hypertrophy of both inferior nasal turbinates Hypertension History of esophageal stricture Gastroesophageal reflux disease concurrent with and due to paraesophageal hernia Dyslipidemia Bilateral tinnitus Asthma well controlled rare res inh use Anxiety Surgical History History of esophagogastroduodenoscopy (EGD) History of cataract surgery left H/O detached retina repair right S/P endometrial ablation S/P sinus surgery S/P wrist surgery left Hx of salpingo-oophorectomy, bilateral S/P hysterectomy H/O laparoscopy H/O breast biopsy right S/P dilation and curettage H/O oral surgery tooth extractions S/P colonoscopy Family History Mother Breast cancer Hypertension Daughter Gastroparesis Pulmonary embolism Lupus anticoagulant disorder Father Heart disease Diabetes Social History Smoking Status: Never smoker Second Hand Exposure: No; Do You Dip or Chew Tobacco: No; Hx Alcohol Use: No Hx Substance Use: No Preferred Language: Sinhala Communication Ability: Effective 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 Religion 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: No Beliefs That Will Affect Care: None marital status: Current Living Situation: Spouse current occupational status: employed 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 Other Information That Helps Us Care for You: No Feels Safe at Home: Yes Safety Concerns: Feels Safe At This Time Diet Comment: low sugar Physical Activity Frequency Comment: needs repeat foot surgery so exercise is difficult Assistive Devices: None Review of Systems Constitutional: as per Subjective / HPI Eyes: no problem reported Ear, Nose, Mouth, Throat: no problem reported Respiratory: no dyspnea Cardiovascular: no chest pain Gastrointestinal: as per Subjective / HPI Genitourinary: as per Subjective / HPI Musculoskeletal: no problem reported Integumentary: no problem reported Neurologic: no problem reported Psychiatric: no problem reported Physical Exam Physical Exam: General: well-appearing, no acute distress HEENT: Normocephalic, mucous membranes moist Pulmonary: Nonlabored respirations Abdomen: Nondistended Extremities: Moves all 4 spontaneously Neuro: No gross deficits Psych: alert and oriented, normal mood Skin: Warm, dry, no rashes noted Results & Data Vital Signs (Past 12 Hours) Vital Signs Temp Pulse Pulse Resp BP BP Pulse Ox 07/19/23 09:37 69 18 109/68 96 07/19/23 05:30 69 24 157/87 H 99 07/19/23 04:10 73 95 07/19/23 04:01 68 07/19/23 03:51 36.8 C 64 18 157/87 H 100 O2 Del Method 07/19/23 09:37 Room Air 07/19/23 05:30 Room Air 07/19/23 04:10 Room Air 07/19/23 04:01 07/19/23 03:51 Room Air PG Care Time/CCT Total # of Minutes Spent Total Time Spent with Patient: Total time spent is greater than 50% in coordination of care (as documented) at patient's floor/unit and/or counseling patient: Coding Level of Care Code 32317 IN/OBS CONSULT LVL 4,60M Diagnoses Ureterolithiasis N20.1 Renal colic on left side N23
[2023-07-19] MEDS: ONDANSETRON INJ 2 MG/ML 2 ML VIAL IV PRN ×2 (11:14→17:06)
[2023-07-19] MEDS ORDERED: SCOPOLAMINE 1 MG TDSY TD ONE ×2 (12:23→12:26)
[2023-07-19] MEDS ORDERED: ATROPINE SULFATE 0.1 MG/ML 10ML SYR IV PRN (12:24)
[2023-07-19] MEDS ORDERED: fentaNYL citrate PF 100 MCG/2 ML VIAL IV PRN (12:24)
[2023-07-19] MEDS ORDERED: PROMETHAZINE HCL 6.25 MG in SODIUM CHLORIDE 0.9% 50 ML IV PRN (12:24)
[2023-07-19] MEDS ORDERED: ePHEDrine sulfate 50 MG/ML AMP IV PRN (12:24)
[2023-07-19] MEDS ORDERED: ONDANSETRON INJ 2 MG/ML 2 ML VIAL IV PRN (12:24)
--- NOTE | 2023-07-19 12:28 | Anesthesiology Consultation ---
Date of Service July 19, 2023 Assessment & Plan Chart Review Chart Review: Acceptable Risk for Surgery and Patient NOT seen in Pre Admission Testing Consults Requested none ASA ASA2 Proposed Anesthesia Anesthesia Type: MAC Risk / Benefits Reviewed With: PT / POA / Parent / Guardian, Accepts Plan and Informed Consent Obtained History Surgery Operation Date: 07/19/23 10:10 Proposed Procedures p Cystoscopy, Retrograde Pyelogram, Left Ureteral Stent Placement - Ambrocio Cast, DO Height/Weight Height: 5 ft 5 in Weight: 88.5 kg Allergies Allergy/AdvReac Type Severity Reaction Status Date / Time Cephalosporins Allergy Mild RASH Verified 07/19/23 10:57 codeine AdvReac Intermediate SEVERE Verified 07/19/23 10:57 NAUSEA AND VOMITING morphine AdvReac Intermediate SEVERE Verified 07/19/23 10:57 NAUSEA AND VOMITING erythromycin base AdvReac Mild GI upset Verified 07/19/23 10:57 lisinopril AdvReac Mild cough Verified 07/19/23 10:57 Medications Home Medications Medication Instructions Recorded Confirmed Last Taken montelukast 10 mg tablet 10 mg PO HS 06/08/19 07/19/23 07/17/23 (Singulair) atorvastatin 20 mg tablet 20 mg PO HS 12/25/20 07/19/23 07/17/23 clobetasol 0.05 % topical ointment 1 applic topical DIRECTED PRN 12/25/20 07/19/23 07/17/23 Skin Irritation hydrochlorothiazide 12.5 mg tablet 12.5 mg PO QAM 12/25/20 07/19/23 07/17/23 dicyclomine 20 mg tablet 20 mg PO TID PRN abdominal pain 12/26/20 07/19/23 07/17/23 #20 tabs albuterol sulfate 90 mcg/actuation 1 inh inhalation QID PRN Wheezing 02/21/21 07/19/23 07/17/23 aerosol inhaler amitriptyline 10 mg tablet 10 mg PO DAILY PRN Sleep 10/27/22 07/19/23 07/17/23 meloxicam 15 mg tablet 15 mg PO DAILY 10/27/22 07/19/23 07/17/23 potassium chloride 20 mEq 20 meq PO DAILY 10/27/22 07/19/23 07/17/23 tablet,extended release ondansetron 4 mg disintegrating 4 mg PO Q6H PRN nausea and 06/30/23 07/19/23 07/17/23 tablet vomiting #12 tabs oxycodone 5 mg tablet 5 mg PO Q6H #12 tabs 06/30/23 07/19/23 07/17/23 cholecalciferol (vitamin D3) 25 25 mcg PO DAILY 07/19/23 07/19/23 07/17/23 mcg (1,000 unit) chewable tablet (Vitamin D3) cyanocobalamin (vitamin B-12) 1,000 mcg PO DAILY 07/19/23 07/19/23 07/17/23 1,000 mcg tablet (Vitamin B-12) fluticasone 500 mcg-salmeterol 50 1 ea inhalation BID 07/19/23 07/19/23 07/17/23 mcg/dose blistr powdr for inhalation (Advair Diskus) gabapentin 600 mg tablet 600 mg PO TID 07/19/23 07/19/23 07/17/23 lifitegrast 5 % eye drops in a 1 drp OPB BID 07/19/23 07/19/23 07/17/23 dropperette (Xiidra) losartan 50 mg tablet 50 mg PO DAILY 07/19/23 07/19/23 07/17/23 omeprazole 40 mg capsule,delayed 40 mg PO DAILY 07/19/23 07/19/23 07/17/23 release Active Medications Generic Name Dose Route Start Last Admin Trade Name Freq PRN Reason Stop Dose Admin Lactated Ringer's 1,000 mls @ 125 mls/hr 07/19/23 10:20 07/19/23 11:53 Lr IV 07/19/23 18:19 125 mls/hr .Q8H MARY Administration Ondansetron HCl 4 mg 07/19/23 10:20 07/19/23 11:14 Ondansetron Inj 2 Mg/Ml 2 Ml Vial IV 08/18/23 10:19 4 mg Q6H PRN Administration Nausea And Vomiting NPO Date Last Intake of Fluids: 07/18/23 Time Last Intake of Fluids: 18:00 Date Last Intake of Solids: 07/18/23 Time Last Intake of Solids: 18:00 Past Medical History Medical History Diverticulitis History of palpitations related to anxiety Insomnia Hypertrophy of both inferior nasal turbinates Hypertension History of esophageal stricture Gastroesophageal reflux disease concurrent with and due to paraesophageal hernia Dyslipidemia Bilateral tinnitus Asthma well controlled rare res inh use Anxiety Past Family History Family History Mother Breast cancer Hypertension Daughter Gastroparesis Pulmonary embolism Lupus anticoagulant disorder Father Heart disease Diabetes Past Surgical History Surgical History History of esophagogastroduodenoscopy (EGD) History of cataract surgery left H/O detached retina repair right S/P endometrial ablation S/P sinus surgery S/P wrist surgery left Hx of salpingo-oophorectomy, bilateral S/P hysterectomy H/O laparoscopy H/O breast biopsy right S/P dilation and curettage H/O oral surgery tooth extractions S/P colonoscopy Past Anesthesia History No Hx of Anesthesia Complications and No Family Hx of Anesthesia Complications Social History Smoking Status: Never smoker Do You Dip or Chew Tobacco: No Hx Alcohol Use: No Hx Substance Use: No substance use type: does not use Review of Systems ROS Unobtainable: All systems reviewed & are unremarkable except as noted in HPI & below Physical Exam Vital Signs Last Vital Signs Temp 36.8 C 07/19/23 03:51 Pulse 69 07/19/23 09:37 Resp 18 07/19/23 09:37 BP 109/68 07/19/23 09:37 Pulse Ox 96 07/19/23 09:37 O2 Del Method Room Air 07/19/23 09:37 Constitutional no acute distress ENMT Mouth: no TMJ abnormality Thyromental Distance: > or= 3.5 Finger Breadths Mallampati Class: II Neck normal visual inspection and trachea midline; neck extension not limited Respiratory normal respiratory effort Auscultation: lungs clear to auscultation bilaterally Cardiovascular Rate/Rhythm: regular rate and regular rhythm Heart Sounds: no murmur Musculoskeletal Spine: normal cervical ROM Extremities: full ROM of extremities Neurologic moves all extremities Psychiatric Orientation: alert and oriented x 3 Testing Laboratory Results 07/19/23 03:55 07/19/23 03:55 Urine Color Dark Yellow 07/19/23 03:53 Urine Appearance Clear (Clear) 07/19/23 03:53 Urine pH 5.5 (4.5-7.5) 07/19/23 03:53 Ur Specific [place] 1.021 (1.000-1.030) 07/19/23 03:53 Urine Protein Trace (Negative) H 07/19/23 03:53 Urine Glucose (UA) Negative (Negative) 07/19/23 03:53 Urine Ketones Trace (Negative) H 07/19/23 03:53 Urine Nitrite Negative (Negative) 07/19/23 03:53 Ur Leukocyte Esterase Negative (Negative) 07/19/23 03:53 Urine WBC (Auto) 5-10 /hpf (0-5) H 07/19/23 03:53 Urine RBC (Auto) >30 /hpf (0-4) H 07/19/23 03:53 U Hyaline Cast (Auto) 1-5 /lpf (0-5) 07/19/23 03:53 U Epithel Cells (Auto) >30 /lpf (0-5) H 07/19/23 03:53 Urine Bacteria (Auto) Negative (Negative) 07/19/23 03:53
[2023-07-19] MEDS ORDERED: fentaNYL citrate PF 100 MCG/2 ML VIAL ONE (13:08)
[2023-07-19] MEDS ORDERED: MIDAZOLAM HCL 1 MG/ML 2ML VIAL ONE (13:08)
[2023-07-19] MEDS ORDERED: PROPOFOL IV EMULSION 10 MG/ML 20 ML VIAL IV ONE ×2 (13:08→13:32)
[2023-07-19] MEDS ORDERED: DIATRIZOATE MEGLUMINE 30% 100ML VIAL INSTIL PRN (13:28)
[2023-07-19] MEDS ORDERED: DEXAMETHASONE SOD INJ 4 MG/ML VIAL ONE (13:32)
[2023-07-19] MEDS ORDERED: ONDANSETRON INJ 2 MG/ML 2 ML VIAL ONE (13:32)
--- NOTE | 2023-07-19 13:33 | Operative Report ---
PG Post Operative Report Pre & Post Diagnosis Operation Date: 07/19/23 10:10 Pre-Op Diagnosis: Left Renal Stone Post-Op Diagnosis: Left Renal Stone I identified the patient and participated in the time-out.: Yes Procedure Operation Date: 07/19/23 10:10 Actual Procedures p Cystoscopy with left Retrograde Pyelogram, Left Ureteral Stent Placement(Left) - Ambrocio Cast DO Surgeon Ambrocio Cast, II, DO Pipe Insulator None Estimated Blood Loss 1 Findings Consistent with Post-Op Diagnosis Stent placed in good position. Specimens None Drains 6 Fr x 24 Left Anesthesia Type MAC Complications none Disposition Disposition: Recovery Room Indications Patient with obstruction. Risks and benefits discussed at length. Description of Procedure Patient was consented and brought back to the operating room. Patient was placed under anesthesia in the supine position and moved to the dorsal lithotomy position. Patient was prepped and draped in the regular sterile fashion. A time out was completed. A 30degree Cystoscope was placed into the bladder and the entire bladder was examined. The UO's were identified. The UO was cannulized with a catheter and a retrograde pyelogram was completed. A wire was then placed. With the wire in place, a 6 Fr Double J stent was placed. It was confirmed with fluoroscopy. With the stent in place, the bladder was emptied. The scope was removed. The patient was cleaned, aroused from anesthesia, and transferred to the pacu in stable condition having tolerated the procedure well with no complications. I was present and participated in all aspects of the procedure. The patient will be monitored in the PACU until transferred. Plan to set up stone treatment next week. I attest to the content of the Intraoperative Record and any orders documented therein. Any exceptions are noted below.
[2023-07-19] MEDS ORDERED: ACETAMINOPHEN 10MG/ML Custom 1,000 MG in EMPTY BAG 0 ML IV ONE (14:16)
--- NOTE | 2023-07-19 14:17 | Anesthesiology Progress Note ---
Date of Service July 19, 2023 Anesthesia Post Procedure Vital Signs Vital Signs: Temp Pulse Pulse Pulse Resp BP BP 07/19/23 14:10 75 15 143/84 H 07/19/23 14:00 78 14 143/77 H 07/19/23 13:50 81 14 146/76 H 07/19/23 13:43 36.1 C L 94 H 12 148/80 H 07/19/23 09:37 69 18 109/68 07/19/23 05:30 69 24 157/87 H 07/19/23 04:10 73 07/19/23 04:01 68 07/19/23 03:51 36.8 C 64 18 157/87 H Pulse Ox O2 Del Method O2 Flow Rate 07/19/23 14:10 93 Room Air 07/19/23 14:00 97 Room Air 07/19/23 13:50 100 Oxymask 4 07/19/23 13:43 98 Oxymask 4 07/19/23 09:37 96 Room Air 07/19/23 05:30 99 Room Air 07/19/23 04:10 95 Room Air 07/19/23 04:01 07/19/23 03:51 100 Room Air Pain Intensity Left Flank: Pain Intensity: 5 Transfer of Care Handoff Completed per policy Notes Mental Status: alert / awake / arousable Patient Amnestic to Procedure: Yes Nausea / Vomiting: adequately controlled Pain: adequately controlled Airway Patency, RR, SpO2: stable & adequate BP & HR: stable & adequate Hydration State: stable & adequate Anesthetic Complications: no major complications apparent and Pt Satisfied with anesthetic care
[2023-07-19] MEDS ORDERED: ACETAMINOPHEN 1000 MG/100 ML IV IV ONE (14:18)
[2023-07-19] MEDS ORDERED: ACETAMINOPHEN 1,000 MG/100 ML VIAL IV ONE (14:30)
--- NOTE | 2023-07-19 14:42 | Fluoroscopy Report ---
FL retrograde includes kub CLINICAL HISTORY: LEFT STENTleft-sided cystourethrogram COMPARISON STUDY: CT of same day FLUOROSCOPY TIME: 18.4 seconds FLUOROSCOPY IMAGES: 2 EXPOSURE DOSE: 4.78 mGy FINDINGS: A left ureteral stent is in place. Contrast opacified left renal collecting system without significant hydronephrosis. IMPRESSION: Fluoroscopic assistance as above. ACT 112: Negative or not required by law. Electronically signed by: Benoit Walter M.D. 07/19/2023 2:40 PM
[2023-07-19] MEDS ORDERED: ENOXAPARIN INJ 40 MG/0.4 ML SYR SQ SCH (16:00)
[2023-07-19] MEDS: CHECK SCOPOLAMINE PATCH PLACEMENT SCH ×2 (16:25→23:07)
[2023-07-19] MEDS: FLUTICASONE/VILANTEROL 200/25MCG 14 PUFFS/INHALER INH SCH (16:25)
[2023-07-19] MEDS: PANTOprazole 40 MG TAB PO SCH (17:25)
[2023-07-19] MEDS: TAMSULOSIN HCL 0.4 MG CAP PO SCH (17:25)
--- NOTE | 2023-07-19 19:48 | History & Physical Bridge Note ---
Date of Service July 19, 2023 History & Physical Bridge Note I have examined the patient, reviewed the History & Physical and in the interval since the performance of the History & Physical I have noted the following changes of clinical significance: Patient seen before her urological procedure. She was feeling more comfortable with less pain and was agreeable to ureteral stent placement she denied any chest pain or shortness of breath. Was feel a bit nauseated but had just received Zofran. History and ROS reviewed Vitals reviewed Gen: AAOx3, NAD HEENT: Anicteric sclerae, EOMI CV: RRR no mgr nl S1S2 Pulm: CTAB no wcr Abd: +BS soft NT ND no masses or hernias Ext: No edema, 2+ DP pulses Skin: No rashes, warm/dry Neuro: Full strength throughout 57-year-old female here with left sided ureterolithiasis. No evidence of UTI or renal failure. With intractable pain. Going for ureteral stent placement today-appreciate urology consultation -Pain control, antiemetics as needed Patient wanted to stay overnight after procedure-plan to discharge home tomorrow Asthma-continue home inhalers, Singulair Hypertension-hold home HCTZ and give IV fluids Hyperlipidemia-continue home atorvastatin Of note, also had a 2.4 cm hypodensity in the liver unchanged from previous- follows an outpatient
--- NOTE | 2023-07-19 19:50 | Communication Note ---
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 She is relatively immobile as she continues to have ongoing pain with her left ankle issues. She is concerned about getting a DVT after having a urological procedure. We have agreed to treat her with 7 to 10 days of Lovenox 40 Mg SQ once daily after discharge. Nursing will teach her how to inject herself with Lovenox.
[2023-07-19] MEDS ORDERED: ATORVASTATIN 20 MG TAB PO SCH (21:00)
[2023-07-19] MEDS ORDERED: MONTELUKAST SODIUM 10 MG TABLET PO SCH (21:00)
[2023-07-20] MEDS: ONDANSETRON INJ 2 MG/ML 2 ML VIAL IV PRN (06:07)
[2023-07-20] MEDS: MoRPHine SULFATE 4 MG/ML 1 ML CARP\\VIAL IV PRN ×2 (06:07→10:59)
[2023-07-20 08:14] LABS: Basophils # (auto) 0.02 K/uL (0.00-0.20); Basophils % (auto) 0.2 %; Hematocrit (blood only) 41.2 % (37.0-47.0); Hemoglobin 13.7 g/dl (12.0-16.0); Immature Granulocytes # (auto) 0.04 K/uL (0.01-0.20); Immature Granulocytes % (auto) 0.5 %; Lymphocytes # (auto) 1.78 K/uL (1.20-3.40); Lymphocytes % (auto) 20.3 %; Mean Corpuscular Hemoglobin 31.4 pg (25.0-34.0); Mean Corpuscular Hgb Conc 33.3 g/dL (32.0-36.0); Mean Corpuscular Volume 94.3 fL (80.0-100.0); Mean Platelet Volume 10.2 fL (9.4-12.4); Monocytes # (auto) 0.71 K/uL (0.11-0.59); Monocytes % (auto) 8.1 %; Neutrophils # (auto) 6.24 K/uL (1.40-6.50); Neutrophils % (auto) 70.9 %; Platelet Count 282 K/uL (130-400); RDW Coefficient of Variation 12.8 % (11.5-14.5); RDW Standard Deviation 44.4 fL (36.4-46.3); Red Blood Count 4.37 M/uL (4.20-5.40); White Blood Count 8.79 K/ul (4.8-10.8)
[2023-07-20 08:45] LABS: Albumin Globulin Ratio 1.5 (0.9-2); Albumin Level 4.2 gm/dl (3.4-5.0); BUN Creatinine Ratio 14.5 (10-20); Bilirubin,Total 1.2 mg/dl (0.2-1.0); Calcium 9.4 mg/dl (8.6-10.3); Creatinine Clr Calc Pharmacy 90.8 ml/min; Est GFR (African American) 101.6 ml/min; Est GFR (Non-African American) 87.7 ml/min; Globulin 2.8 gm/dl (2.5-4.0); Potassium 3.5 mmol/L (3.5-5.1)
[2023-07-20] MEDS: FLUTICASONE/VILANTEROL 200/25MCG 14 PUFFS/INHALER INH SCH (09:02)
[2023-07-20] MEDS: CHECK SCOPOLAMINE PATCH PLACEMENT SCH (09:02)
[2023-07-20] MEDS: PANTOprazole 40 MG TAB PO SCH (09:02)
[2023-07-20] MEDS: TAMSULOSIN HCL 0.4 MG CAP PO SCH (09:02)
--- NOTE | 2023-07-20 09:26 | Urology Progress Note ---
Date of Service July 20, 2023 Assessment & Plan (1) Ureterolithiasis: Plan: - Pt POD#1 s/p cystoscopy and left ureteral stent placement - Doing well, progressing as expected - Afebrile, lab work reviewed - creatinine 0.76, WBC 8.79 - Tolerating left ureteral stent with minimal bother - Okay to d/c from perspective when medically stable - Recommend d/c with course of PO antibiotics, Tamsulosin, prn Pyridium and prn Oxybutynin for stent management - Patient will be discharged with Lovenox postop due to her hx of DVT/PE after ankle surgery per hospital medicine - Expected clinical course reviewed, all questions answered - Patient is scheduled for outpatient f/u with our service today and can keep appointment to set up ureteroscopy and laser lithotripsy - will sign off Admission and Anticipated Discharge Date Admission Date: July 19, 2023 Subjective Patient seen and examined at bedside this morning, chart reviewed No acute issues overnight She is awake and sitting up in bed Reports mild left flank discomfort with voiding, tolerable She is voiding without difficulty, urine clearing postprocedure No nausea, vomiting, fever or chills Review of Systems Constitutional: as per Subjective / HPI Gastrointestinal: as per Subjective / HPI Genitourinary: as per Subjective / HPI Physical Exam Physical Exam: General: well-appearing, no acute distress HEENT: Normocephalic, mucous membranes moist Pulmonary: Nonlabored respirations Abdomen: Nondistended Extremities: Moves all 4 spontaneously Neuro: No gross deficits Psych: alert and oriented, normal mood Skin: Warm, dry, no rashes noted Results & Data Vital Signs (Past 12 Hours) Vital Signs Temp Pulse Resp BP Pulse Ox O2 Del Method 07/20/23 07:11 36.7 C 63 18 117/73 97 Room Air 07/20/23 03:45 36.8 C 76 16 129/75 93 Room Air 07/19/23 22:33 36.9 C 78 16 130/72 93 Room Air PG Care Time/CCT Total # of Minutes Spent Total Time Spent with Patient: Total time spent is greater than 50% in coordination of care (as documented) at patient's floor/unit and/or counseling patient: Coding Level of Care Code 18453 SUB INP/OBS CARE 10/07MIN Diagnoses Ureterolithiasis N20.1
[2023-07-20] MEDS ORDERED: oxyBUTYnin chloride 5 MG TAB PO PRN (11:44)
--- NOTE | 2023-07-20 12:03 | Discharge Summary ---
Discharge Summary Date of Service July 20, 2023 Notes For Next Care Provider Medication Changes From Visit Oxybutynin 5mg po bid prn stent pain oxycodone 5mg po q6h prn moderate-severe pain HOLD Mobic while on Lovenox Lovenox 40mg SQ daily x 2 weeks Cipro 500mg po bid Admission HPI Per Admitting Provider Filomena Gupta is a pleasant 57yo female presenting with left flank pain and renal stone. She was originally seen in the ER on 06/30/23 with left sided back pain. She had a CT at that time that revealed a 4mm stone in the proximal left ureter near the left UPJ with mild left hydronephrosis as well as additional nonobstructing stones. She was treated with IVF, pain medication and Flomax with improvement and was ultimately sent home. She has felt well since then with no further flank pain until last night 07/18/23 around 23:00 when she developed acute left sided flank pain with associated nausea, vomiting and dry heaving. Pain has been severe - moving anteriorly. She took a Percocet but vomited it up then tried ice and heat as well as positional changes but was unable to relieve the pain. In the ER she is afebrile, mildly hypertensive otherwise stable ER Course: Toradol Morphine Zofran NSS Flomax Principal Dx & Hospital Course #1 = Principal Diagnosis (1) Left nephrolithiasis: 57yo female with obstructing ureteral calculi in the left with resultant hydronephrosis. Significant pain as well as nausea. She is afebrile, HD stable. Does have mild leukocytosis with WBC=11.9, no bacteria or evidence of infection on UA. Renal function is intact. Pain improved after Toradol, Morphine and Zofran SHe was given pain control, antiemetics, IVFs and had ureteral stent placement with Urology on 07/19 She is improving, does not have UTI but will have empiric Cipro coverage for 4 more days as per Urology recommendations No renal failure Has some ongoing stent pain-continue APAP, oxycodone prn, oxybutynin prn spasms f/u with Urology as outpt is arranged for stone and stent management -Continue Flomax (2) History of venous thromboembolism: With h/o DVT/PE after ankle surgery, she is at increased risk for VTE given her ongoing immobility due to ankle pain issues and recent surgical procedure Will treat with Lovenox 40mg SQ x 14 days until done with urological procedures HOLD Mobic while on Lovenox if possible return to ER if develops CP, SOB, signs of DVT etc discussed with patient (3) Hypertension: continue home losartan, HCTZ no acute issues (4) Asthma: no acute issues continue home inhalers Discharge Exam Constitutional WD/WN, vitals as above Respiratory normal respiratory effort, lungs clear to auscultation Cardiovascular RRR, no murmur, no edema Gastrointestinal (Abdomen) normal bowel sounds, soft, nontender, no hepatosplenomegaly Psychiatric A+Ox3, euthymic affect Updated Medication List Medication Instructions Recorded Confirmed Type montelukast 10 mg tablet 10 mg PO HS 06/08/19 07/19/23 History (Singulair) atorvastatin 20 mg tablet 20 mg PO HS 12/25/20 07/19/23 History clobetasol 0.05 % topical ointment 1 applic topical DIRECTED PRN 12/25/20 07/19/23 History Skin Irritation hydrochlorothiazide 12.5 mg tablet 12.5 mg PO QAM 12/25/20 07/19/23 History dicyclomine 20 mg tablet 20 mg PO TID PRN abdominal pain 12/26/20 07/19/23 Rx #20 tabs albuterol sulfate 90 mcg/actuation 1 inh inhalation QID PRN Wheezing 02/21/21 07/19/23 History aerosol inhaler amitriptyline 10 mg tablet 10 mg PO DAILY PRN Sleep 10/27/22 07/19/23 History meloxicam 15 mg tablet 15 mg PO DAILY 10/27/22 07/19/23 History potassium chloride 20 mEq 20 meq PO DAILY 10/27/22 07/19/23 History tablet,extended release ondansetron 4 mg disintegrating 4 mg PO Q6H PRN nausea and 06/30/23 07/19/23 Rx tablet vomiting #12 tabs cholecalciferol (vitamin D3) 25 25 mcg PO DAILY 07/19/23 07/19/23 History mcg (1,000 unit) chewable tablet (Vitamin D3) cyanocobalamin (vitamin B-12) 1,000 mcg PO DAILY 07/19/23 07/19/23 History 1,000 mcg tablet (Vitamin B-12) fluticasone 500 mcg-salmeterol 50 1 ea inhalation BID 07/19/23 07/19/23 History mcg/dose blistr powdr for inhalation (Advair Diskus) gabapentin 600 mg tablet 600 mg PO TID 07/19/23 07/19/23 History lifitegrast 5 % eye drops in a 1 drp OPB BID 07/19/23 07/19/23 History dropperette (Xiidra) losartan 50 mg tablet 50 mg PO DAILY 07/19/23 07/19/23 History omeprazole 40 mg capsule,delayed 40 mg PO DAILY 07/19/23 07/19/23 History release ciprofloxacin HCl 500 mg tablet 500 mg PO BID #8 tabs 07/20/23 Rx (Cipro) enoxaparin 40 mg/0.4 mL 40 mg (0.4 mL) subcut Q24H 14 days 07/20/23 Rx subcutaneous syringe (Lovenox) #5.6 mL oxybutynin chloride 5 mg tablet 5 mg PO BID PRN stent pain #10 tabs 07/20/23 Rx oxycodone 5 mg tablet 5 mg PO Q6H PRN moderate-severe 07/20/23 Rx pain #10 tabs tamsulosin 0.4 mg capsule 0.4 mg PO DAILY #14 caps 07/20/23 Rx Hospital Stay Data Consultations 07/19/23 05:41 ED Decision to Admit Stat 07/19/23 09:32 Consult Urology Routine Procedures Performed Operation Date: 07/19/23 10:10 Actual Procedures p Cystoscopy, Retrograde Pyelogram, Left Ureteral Stent Placement(Left) - Ambrocio Cast, Diagnostic Imagining Performed 07/19/23 03:56 CT abd pelvis IV con only Stat 07/19/23 13:00 FL retrograde includes kub Routine Pending Results Patient Have Any Pending Studies at Discharge: No Discharge Instructions Given to Patient (Per Discharging Provider) Please finish out 4 more days of the antibiotic called Cipro, twice a day. You can take oxycodone as needed for moderate-severe pain, oxybutynin as needed for spasms around the stent. You will be following up with Urology as discussed for stone and stent management. Because of your history of blood clots, you will need to take Lovenox blood thinner injections once daily x 2 weeks. If you develop chest pain, shortness of breath, leg swelling or pain or have any other acute concerns, please return to the hospital. If you have trouble urinating or excessive blood in the urine, please call the Urology office first for advice. Total Time Total Time Spent Total Time Spent (In Minutes): 35 min Coding Level of Care Code 59082 INP/OBS DISCH >30 MIN Diagnoses Left nephrolithiasis N20.0 History of venous thromboembolism Z86.718 Hypertension I10 Asthma J45.909
--- OUTSIDE RECORDS SUMMARY | 2023-07-23 14:55 | External Medical Summary | Continuity of Care Document ---
Author Name Unknown Organization [facility] [address] [facility] 101 [address] [facility] [address] [id number] Care Team Providers Care Ed Case Manager Name Role Phone Yasemin Medellin Primary Care Physician [phone] Encounter PSH FINNBR [id number] Date(s): 07/08/23 - 07/08/23 [facility] [address] [facility] 101 [facility] [address] [place] [address] [phone] Encounter Diagnosis CRPS type II(Discharge Diagnosis) - 07/08/23 Discharge Disposition: Home or Self Care Attending Physician: DO Lowe Neyha Allergies, Adverse Reactions, Alerts Substance Reaction Severity Status codeine Drug-induced nausea and vomiting Active erythromycin Rash stomach upset Active cephalexin Rash Active tricyclic antidepressants Unknown Ac tive Assessment and Plan Extracted from: Title:PM&R Author:DO Gan Toquynh Date:06/14 03/05 57 yo F who presents with CR PS based on [place] criteria 11/04/22 of the L foot. Started after L flatfoot reconstruction 02/2021. Course c/b prolonged wound healing and multiple DVT and PE. Here today for follow up. Currently doing better with PT but with had a recent gabapentin holiday for approximately four days due to gabapentin fill error, which is likely contributing to her pain and increased leg cramping. 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 - Epson salt bath for LLE. - Work restrictions noteupdated and signed fortoday. - Medications: gabapentin refilled with 600mg tablets for 600mg TID Advised her to take 600mg tonight, then 600mg BID tomorrow, then resume 600mg TID schedule. On meloxicam as well. Tramadol 30 tabs given, to take prior to therapies. Never tried: lyrica, ssri/snri ? if allergic to TCA - she is unaware if this is true - Intervention: None required at this time - Consults: - Cont to follow with Dr. Sanders - Pt notes she was told may require repeat surgery in the future. Shefeels that with continued PT and gabapentin her pain will likely decrease toabout 10/23, at which pointshe would likely opt for no surgery if possible.Will continue with PT and gabapentin and re-discuss at the next visit. - BRITTA Mckeon assisting with Psych services - Psych services Follow Up: 4 months via telehealth Immunizations Given and Recorded Vaccine Date Status Refusal Reason influenza virus vaccine, inactivated 06/01/22 Vlad rded influenza virus vaccine, inactivated 06/17/21 Vlad rded influenza virus vaccine, inactivated 06/01/18 Give n influenza virus vaccine, inactivated 05/22/14 Vlad rded SARS-CoV-2 mRNA (Pfizer 12+) bivalent 06/01/22 Rec orded SARS-CoV-2 (COVID-19) mRNA BNT-162b2 vax 06/04/21 Recorded SARS-CoV-2 (COVID-19) mRNA BNT-162b2 vax 01/11/21 Recorded SARS-CoV-2 (COVID-19) mRNA BNT-162b2 vax 12/21/20 Recorded zoster vaccine, inactivated 08/09/19 Recorded zoster vaccine, inactivated 06/05/19 Recorded typhoid vaccine, inactivated 06/10/18 Recorded tetanus/diphtheria/pertuss, acel (Tdap) 09/08/17 G iven Medications Albuterol (Eqv-ProAir HFA) 90 mcg/inh inhalation aerosol Start: 04/22/23 13:01:00 EDT, 2 puff, inhaled, q6h, Disp# 3 kit, Refills: 3, prn, Pharmacy: [facility] Start Date: 04/22/23 Status: Ordered albuterol 0.083% for nebulization Start: 04/08/23 10:39:00 EDT, 3 mL, inhaled, q6h, Disp# 150 mL, Refills: 3, PRN: as needed for wheezing, Pharmacy: [facility] Start Date: 04/08/23 Status: Ordered atorvastatin 20 mg oral tablet Start: 11/28/22 13:50:00 EDT, 1 tab, PO, Daily, Disp# 90 tab, Refills: 3, Pharmacy: [facility] Start Date: 11/28/22 Stop Date: 11/23/23 Status: Ordered Clobetasol (Eqv-Temovate E) 0.05% topical cream Start: 11/04/22 9:50:00 EST, prn Start Date: 11/04/22 Status: Ordered famotidine 10 mg oral tablet Start: 05/19/23 11:41:00 EDT, 1 tab, PO, qhs, Disp# 90 tab, Refills: 3, Pharmacy: [facility] Start Date: 05/19/23 Status: Ordered Flonase 50 mcg/inh nasal spray Start: 04/15/23 15:44:00 EDT, 2 spray, each nostril, Daily, Disp# 1 each, Refills: 5, in each nostril, Pharmacy: [facility] Start Date: 04/15/23 Status: Ordered fluticasone-salmeterol Diskus 500 mcg-50 mcg Start: 05/19/23 11:44:00 EDT, 1 puff, inhaled, bid, Disp# 60 blister, Refills: 1, Pharmacy: [facility] Start Date: 05/19/23 Status: Ordered fluticasone-salmeterol Diskus 500 mcg-50 mcg Start: 05/19/23 11:45:00 EDT, 1 puff, inhaled, bid, Disp# 180 blister, Refills: 3, Pharmacy: [facility] Start Date: 05/19/23 Status: Ordered gabapentin 600 mg oral tablet Start: 07/08/23 15:08:00 EDT, 1 tab, PO, tid, Disp# 90 tab, Refills: 3, Pharmacy: [facility]/pharmacy #[id number] Start Date: 07/08/23 Status: Ordered hydroCHLOROthiazide 12.5 mg oral tablet Start: 04/08/23 10:39:00 EDT, 1 tab, PO, Daily, Disp# 90 tab, Refills: 3, Pharmacy: [facility] Start Date: 04/08/23 Status: Ordered losartan 50 mg oral tablet Start: 04/15/23 15:44:00 EDT, 1 tab, PO, Daily, Disp# 90 tab, Refills: 3, Pharmacy: [facility] Start Date: 04/15/23 Status: Ordered meloxicam 15 mg oral tablet Start: 03/23/23 16:16:00 EDT, 1 tab, PO, Daily, Disp# 90 tab, Refills: 1, Pharmacy: [facility] Start Date: 03/23/23 Status: Ordered montelukast 10 mg oral tablet Start: 04/22/23 12:55:00 EDT, 1 tab, PO, Daily, Disp# 90 tab, Refills: 3, Pharmacy: [facility] Start Date: 04/22/23 Stop Date: 04/16/24 Status: Ordered omeprazole 40 mg oral delayed release capsule Start: 04/08/23 10:39:00 EDT, 1 cap, PO, Daily, Disp# 90 cap, Refills: 3, Pharmacy: [facility] Start Date: 04/08/23 Stop Date: 04/02/24 Status: Ordered Potassium Chloride (Eqv-K-Tab) 20 mEq oral tablet, extended release Start: 06/14/23 15:02:00 EDT, 1 tab, PO, Daily, Disp# 90 tab, Refills: 0, Pharmacy: [facility] Start Date: 06/14/23 Stop Date: 09/12/23 Status: Ordered tacrolimus Start: 11/04/22 9:50:00 EST, 0.5 mg =, PO, qAM, PRN Start Date: 11/04/22 Status: Ordered traMADol 50 mg oral tablet Start: 11/04/22 15:27:00 EST, 1 tab, PO, Daily, Disp# 30 tab, Take 45 min prior to therapy session,PRN: as needed for pain, Pharmacy: [id number] Start Date: 11/04/22 Status: Ordered Mental Status 07/08/23 Barriers to Learning one year Vision imp airment, Other: Eye glasses Mandatory Health Literacy Documentation Yes Health Literacy Communication Barriers N ever Primary Language Citizen Of [place] Problem List Condition Confirmation Course Effective Dates Status H ealth Status Informant Unspecified asthma with status asthmaticus Confirmed Active ASTHMA Confirmed Active Bronchitis Confirmed Active CRPS type II Confirmed Active Ankle disorder Confirmed Active Foot joint disorder Confirmed Active Diverticulosis Confirmed Active Eustachian tube dysfunction Confirmed Active Dysuria Confirmed Active Ear pressure Confirmed Active Endometriosis Confirmed Active Wheezing on exhalation Confirmed Active Family history of breast cancer in mother Confirmed Active Family history of aortic aneurysm 1 Confirmed Active Left foot pain Confirmed Active GERD (gastroesophageal reflux disease) Confirmed Active Hyperglycemia Confirmed Active Hyperlipidemia Confirmed Active HTN (hypertension) Confirmed Active Hypokalemia Confirmed Active Breast mass seen on mammogram Confirmed Active Pre-op exam Confirmed Active Pleuritic chest pain Confirmed Active Serous otitis media Confirmed Active Sleep disorder Confirmed Active Sural neuritis Confirmed Active Pes planovalgus Confirmed Active Elevated TSH Confirmed Active Weight disorder Confirmed Active 1mother, nonsmoker, uncontrolle Diagnosis Diagnosis Type Effective Dates Health Status Cl inical Service Informant CRPS type II Discharge Diagnosis 07/08/23 Procedures Procedure Date Related Diagnosis Body Site Status Mammogram 1 05/18/[address] of abdomen and pelvis 2 02/04/23 Completed Shave biopsy 10/27/21 Completed Upper GI endoscopy 3 11/03/19 Comp leted Ultrasound of right breast 4 05/05/19 Completed Mammogram 5 05/01/19 Completed Cataract surgery 6 08/30/17 Comple david Laser 7 08/30/17 Completed Colonoscopy 8 12/18/16 Completed Hysterectomy 9 11/2015 Completed Laparoscopy Completed Procedure, multiple retina tears Completed Repair of wrist Completed 1Impression: The newly visualized 12 mm mixed density focal asymmetry in the upper outer anterior left breast needs additional imaging evaluation. 2Impression: 1. Acute diverticulitis involving the distal descending colon. No perforation or abscess at this time. 2. No evidence for a bowel obstruction. 3. Left-sided nephrolithiasis. No hydronephrosis. 4. Normal appendix 5. A 1.2 cm intermediate density lesion wihtin the right kidney. This previously measured 1.5 cm. Although technically indeterminate this favors a hyperdense cyst given the slight decrease in size compared to the prior study. 3IMPRESSIONS: Z-line regular, 40 cm from the incisors Normal esophagus, biopsied. Normal stomach. 4Circumscribed nearly anechoic 4 mm mass within the right 8:00 breast on u/s, which likely corresponds with the circumscribed mammographic mass. The mass is probably benign and likely represnts a complicated cyst. Recommend f/u dx mammo and u/s of R breast in 6 mo. 5Newly visualized 4mm partially circumscribed mass in the upper outer posterior R breast needs additional eval. 6R eye 7Laser of R eye retinal tears. 8Repeat colonoscopy in 10 years for screening purposes Impression: Diverticulosis in the sigmoid colon and in the ascending colon No specimens collected 9endometriosis Vital Signs Most recent to oldest [Reference Range]: 1 Patient Weight 87.3 kg (07/08/23 2:55 PM) Heart Rate 79 bpm (07/08/23 2:55 PM) Blood Pressure 147/86mmHg (07/08/23 2:55 PM) Cuff Pulse Pressure 61 mmHg (07/08/23 2:55 PM) BP Location # 1 Right Arm (07/08/23 2:55 PM) Social History Social History Type Response Smoking Status Never smoked cigaret iain Sex Female Physical medicine and rehab Outpatient Note * DO Lowe Neyha: MODIFY DO Lowe Neyha: MODIFY, MODIFY DO Lowe Neyha: MODIFY, MODIFY Event Display: PM&R Outpt Note Authored Date: [id number] Chief Complaint follow up History of Present Illness LV 03/24/23. Currently pain is 7/10 as she just came from PT where she received cupping therapy. She recentlyran out of gabapentin but assumed it was from a dose change as the recent fill was only for 10 days, so she did not call to request a refill. Has been out of gabapentin for four days, but she feels with the gabapentin her pain would be as low as a 2/10. She notes that she is now able to touch her left foot without feeling excruciating pain. Has also noticed that the foot feels like a more normal temperature. Does note that she has been having some more cramping in the foot and calf recently, which may be from not taking gabapentin. Her current work situation has been less stressful as the coworker she had tension with will be leaving soon. Notes that she is eating healthier which is also helping her feel better. Current pain: Character - burning Location - left great toe Pain scale - 7/10 Associated symptoms - numbness of the left great toe Alleviation - heat/ice, foot massage, PT, recently obtained shoe inserts that have been helpful Review of Systems 10-point ROS as above in HPI, otherwise negative. Physical Exam Vitals & Measurements HR:79(Monitored) BP:147/86 WT:87.3kg WT:87.300kg(Dosing) Constitutional: Well appearing, well nourished. No apparent distress. Conversational. HENT: Normocephalic/atraumatic, moist oral mucosa. Eyes: Sclera anicteric, EOMI. Respiratory: No increased work of breathingon room air. Cardiovascular: No peripheral edema. Musculoskeletal: left foot with three healed surgical scars on the medial and lateral foot and posteromedial ankle. Mild swelling noted in the left foot. Small abrasion noted over the dorsal left 3rdtoe proximal to the toenail with some recent bleeding. Assessment/Plan 57 yo F who presents with CRPS based on [place] criteria 11/04/22 of the L foot. Started after L flatfoot reconstruction 02/2021. Course c/b prolonged wound healing and multiple DVT and PE. Here today for follow up. Currently doing better with PT but with had a recent gabapentin holiday for approximately four days due to gabapentin fill error, which is likely contributing to her painand increased leg cramping. 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 - Epson salt bath for LLE. - Work restrictions noteupdated and signed fortoday. - Medications: gabapentin refilled with 600mg tablets for 600mg TID Advised her to take 600mg tonight, then 600mg BID tomorrow, then resume 600mg TID schedule. On meloxicam as well. Tramadol 30 tabs given, to take prior to therapies. Never tried: lyrica, ssri/snri ? if allergic to TCA - she is unaware if this is true - Intervention: None required at this time - Consults: - Cont to follow with Dr. Sanders - Pt notes she was told may require repeat surgery in the future. Shefeels that with continued PT and gabapentin her pain will likely decrease toabout 10/23, at which pointshe would likely opt for no surgery if possible.Will continue with PT and gabapentin and re-discuss at the next visit. - BRITTA Mckeon assisting with Psych services - Psych services Follow Up: 4 months via telehealth Attestation Attending note: I have personally seen and examined the patient and have directly participated in the management of the patient with the resident/fellow. I have discussed the case with the resident and I agree with the diagnosis and treatment plan. I have also reviewed and edited the resident/fellows note to reflect my findings, impressions, and care plan. Was doing very well until ran out of elma 600mg tid. Notes with elma pain was down to 2/10-2.5/10, she was able to ambulate further, nerve pain was significantly improved and she was left with achingpain. Also able to touch foot now without intense pain. Since running out of elma her burning pain to the big toe, radial aspect has returned. 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 Significantly improved mood. - Therapy: _Cont PT - Equipment: _No new needs - Adjunct: _Epson salt baths; work note provided - Medications: _gaba refilled with taper scheduled - Intervention: _none - Consults: _No new needs Follow Up: _4-5 months via telehealth Miquel Lowe DO. Consult Director Beverage Specialist Department of Physical Medicine and Rehabilitation Total Time: 30. More than 50% of the total visit time was involved in counseling/coordination of care. Problem List/Past Medical History Ongoing Ankle disorder ASTHMA Breast mass seen on mammogram Bronchitis CRPS type II Diverticulosis Dysuria Ear pressure Elevated TSH Endometriosis Eustachian tube dysfunction Family history of aortic aneurysm Family history of breast cancer in mother Foot joint disorder GERD (gastroesophageal reflux disease) HTN (hypertension) Hyperglycemia Hyperlipidemia Hypokalemia Left foot pain Pes planovalgus Pleuritic chest pain Pre-op exam Serous otitis media Sleep disorder Sural neuritis Unspecified asthma with status asthmaticus Weight disorder Wheezing on exhalation Historical Acute asthma exacerbation Acute bronchitis Acute recurrent sinusitis Acute UTI Colonoscopy Enlarged heart Gastric ulcer Migraine Polyarthralgia Pulmonary emboli ROUTINE GENERAL MEDICAL EXAMINATION AT A HEALTH CARE FACILITY Situational stress Procedure/Surgical History Mammogram (05/18/2023)CT of abdomen and pelvis (02/04/2023)Shave biopsy (10/27/2021)Upper GI endoscopy (11/03/2019)Ultrasound of right breast (05/05/2019)Mammogram (05/01/2019)Cataract surgery (08/30/2017)Laser (08/30/2017)Colonoscopy (12/18/2016)Hysterectomy (11/2015) LaparoscopyRepair of wristProcedure, multiple retina tears Medications albuterol(Albuterol (Eqv-ProAir HFA) 90 mcg/inh inhalation aerosol), 2 puff, inhaled, q6h, 3 refills albuterol(albuterol 0.083% for nebulization), 2.5 mg= 3 mL, inhaled, q6h, PRN, 3 refills atorvastatin(atorvastatin 20 mg oral tablet), 20 mg= 1 tab, PO, Daily, 3 refills clobetasol topical(Clobetasol (Eqv-Temovate E) 0.05% topical cream) famotidine(famotidine 10 mg oral tablet), 10 mg= 1 tab, PO, qhs, 3 refills fluticasone nasal(Flonase 50 mcg/inh nasal spray), 2 spray, each nostril, Daily, 5 refills fluticasone-salmeterol(fluticasone-salmeterol Diskus 500 mcg-50 mcg), 1 puff, inhaled, bid, 1 refills fluticasone-salmeterol(fluticasone-salmeterol Diskus 500 mcg-50 mcg), 1 puff, inhaled, bid, 3 refills gabapentin(gabapentin 600 mg oral tablet), 600 mg= 1 tab, PO, tid, 3 refills hydroCHLOROthiazide(hydroCHLOROthiazide 12.5 mg oral tablet), 12.5 mg= 1 tab, PO, Daily, 3 refills losartan(losartan 50 mg oral tablet), 50 mg= 1 tab, PO, Daily, 3 refills meloxicam(meloxicam 15 mg oral tablet), 15 mg= 1 tab, PO, Daily, 1 refills montelukast(montelukast 10 mg oral tablet), 10 mg= 1 tab, PO, Daily, 3 refills omeprazole(omeprazole 40 mg oral delayed release capsule), 40 mg= 1 cap, PO, Daily, 3 refills potassium chloride(Potassium Chloride (Eqv-K-Tab) 20 mEq oral tablet, extended release), 20 mEq= 1 tab, PO, Daily tacrolimus, 0.5 mg, PO, qAM traMADol(traMADol 50 mg oral tablet), 50 mg= 1 tab, PO, Daily, PRN Allergies cephalexinRash codeineDrug-induced nausea and vomiting erythromycinRash, stomach upset tricyclic antidepressantsUnknown Social History Smoking Status Never smoked cigarettes Alcohol - Denies Alcohol Use Tobacco - Denies Tobacco Use Family History Aortic aneurysm..: Mother. Breast cancer: Mother. Colon polyps: Daughter. Diabetes: Father. Gallbladder disease: Daughter. Heart attack: Father. Hypertension: Mother. Health Status Family Member(s) Immunizations Vaccine Date Status influenza virus vaccine, inactivated 06/01/2022 Recorded SARS-CoV-2 mRNA (Pfizer 12+) bivalent 06/01/2022 Recorded influenza virus vaccine, inactivated 06/17/2021 Recorded SARS-CoV-2 (COVID-19) mRNA BNT-162b2 vax 06/04/2021 Recorded SARS-CoV-2 (COVID-19) mRNA BNT-162b2 vax 01/11/2021 Recorded SARS-CoV-2 (COVID-19) mRNA BNT-162b2 vax 12/21/2020 Recorded zoster vaccine, inactivated 08/09/2019 Recorded zoster vaccine, inactivated 06/05/2019 Recorded typhoid vaccine, inactivated 06/10/2018 Recorded influenza virus vaccine, inactivated 06/01/2018 Given tetanus/diphtheria/pertuss, acel (Tdap) 09/08/2017 Given tetanus/diphtheria/pertuss, acel (Tdap) - Not Given Comments : Already received vaccine influenza virus vaccine, inactivated 05/22/2014 Recorded Recommendations Health Maintenance Pending(in the next year) OverDue Adult Influenza Vaccine due03/13/23and every 1year Due Adult COVID-19 Vaccination due07/08/23Unknown Frequency Pneumococcal Vaccine Adults and Adolescents with Chronic Illness due07/08/23One-time only Due In Future Body Mass Index not due until07/07/24and every 1year Satisfied(in the past 1 year) Satisfied Body Mass Index on05/19/23.Satisfied by ESEQUIEL Duncan, Alisa Breast Cancer Screening on05/21/23.Satisfied by RICK Mcleod, Natalie Electronic Signature on File CC: Nelida Gan DO [address] [facility] [id number] Electronically Reviewed/Signed by: Nelida Gan DO Author Signature Dt/Tm:07/08/2023 03:36 PM Resident Department of Physical Medicine & Rehabilitation Electronically Reviewed/Signed by: Miquel Lowe DO Cosigner Signature Dt/Tm: 07/09/2023 09:38 AM Department of Physical Medicine & Rehabilitation Electronically Reviewed/Signed by: Miquel Lowe DO Cosigner Signature Dt/Tm: 07/09/2023 09:42 AM Department of Physical Medicine & Rehabilitation TV Patient Care team information Care Team Personnel Name: DO Medellin Kristen M Position: Physician - Family Med Member Role: Primary Care Provider Address: Address: [address] [place] [id number] [place] Care Team Related Persons Name: LAUREL KING Address: home [address] [place], [place] [id number] Name: LAUREL KING Address: [facility] [place] Address: home [address] [place], [place] [id number]
== END 2023-07-20 14:31 | disposition home or self-care (01) | DRG 661 ==
LOC: ED 03:47 → SUATTDRO 06:07 → EDINP 06:07 → INTOOBSV 06:07 → 3N 10:20